=== PATIENT | female | born 1945 | race Caucasian/White ===

== ENCOUNTER 2021-10-22 12:18 | Emergency (ER) | payer MEDICARE, SELFPAY ==
--- NOTE | ~2021-10-22 | CT_ITS ---
EXAMINATION: CT brain wo con INDICATION: Confusion, headache COMPARISON: None TECHNIQUE: Standard unenhanced head CT. The dose-length product (DLP) was 605.33 mGy-cm. The mA was a djusted according to patient size. Iterative reconstruction technique was employed. FINDINGS: There is no acute intraparenchymal hemorrhage. No evidence of mass lesion. There is an old lacunar infarct of the left basal ganglia. No evidence of acute infarction. There is mild periventric ular and subcortical hypodensity probably related to small vessel ischemic disease. There is mild pro minence of the sulci and ventricles related to cerebral atrophy. Intracranial calcified cerebral athe rosclerosis is noted. There are no extra-axial collections. There is no mass effect or midline shift. Changes in the globes are likely from ocular lens surgery. The visualized sinuses and mastoid air ce lls are well aerated. IMPRESSION: 1. No acute intracranial abnormality. 2. Age related findings. Reviewed, dictated and finalized at location A.
--- NOTE | ~2021-10-22 | XR_ITS ---
EXAMINATION: XR chest 1V portable INDICATION: Shortness of breath TECHNIQUE: Portable AP chest at 1510 hours COMPARISON: None available FINDINGS: There is a mild diffuse interstitial pattern. There is elevation right hemidiaphragm. There is mild atelectasis of the right lung base. The heart size is normal. There is a moderate-sized slid ing hiatal hernia. Severe thoracic and lumbar spondylosis is noted. IMPRESSION: 1. Diffuse interstitial pattern, consistent with pneumonia and/or pulmonary edema. Reviewed, dictated and finalized at location A. IMPRESSION: 1. Diffuse interstitial pattern, consistent with pneumonia and/or pulmonary margarita
--- NOTE | ~2021-10-22 | US_ITS ---
EXAMINATION: US venous doppler [facility] DATE: 10/22/2021 14:58 INDICATION: leg pain and edema . TECHNIQUE: Grayscale images without and with compression and Doppler images of the bilateral lower ex tremity veins were obtained. COMPARISON: None FINDINGS: The right common femoral vein, profunda (deep) femoral vein, femoral vein, popliteal vein, peroneal v ein, posterior tibial veins, and greater saphenous vein are patent. The left common femoral vein, profunda femoral vein, femoral vein, popliteal vein, peroneal vein, pos terior tibial veins, and greater saphenous vein are patent. IMPRESSION: 1. Patent bilateral lower extremity veins. No evidence of deep venous thrombosis. Reviewed, dictated and finalized at location K. IMPRESSION: 1. Patent bilateral lower extremity veins. No evidence of deep venous thrombos is.
--- NOTE | ~2021-10-22 | CT_ITS ---
EXAMINATION: CT lumbar spine wo con DATE: 10/22/2021 14:32 INDICATION: back pain, fall . TECHNIQUE: Computed tomography (CT) of the lumbar spine was performed without intravenous contrast. A utomated exposure control and iterative reconstruction technique were employed. The dose-length produ ct was 1144.12 mGy-cm. COMPARISON: None. FINDINGS: 5 nonrib-bearing lumbar-type vertebral bodies. Pedicles intact. Severe lumbar scoliosis. Ve rtebral bodies grossly aligned. Vertebral body heights preserved. Severe disc space narrowing and vac uum phenomenon at all lumbar levels. Multilevel severe facet arthropathy. Multilevel severe bilateral neural foraminal narrowing. Multilevel severe central canal narrowing, worst at L3-4 and L4-5. Ather osclerotic arterial calcification. Diverticulosis. IMPRESSION: 1. No acute fracture or traumatic malalignment in the lumbar spine. 2. Severe degenerative disc disease, facet arthropathy, neural foraminal narrowing and central canal narrowing, described above. Reviewed, dictated and finalized at location K. IMPRESSION: 1. No acute fracture or traumatic malalignment in the lumbar spine. 2. Severe degenerative disc disease, facet arthropathy, neural foraminal narrow ing and central canal narrowing, described above.
[2021-10-22 12:26] VITALS: BP 148/90; PULSE 97; RESP 16; TEMP 36.8; O2SAT 95
--- NOTE | 2021-10-22 13:14 | ED.LOWEXIN ---
HPI - Extremity Injury (Lower) General Chief Complaint: Extremity Injury, Lower Stated Complaint: Leg Pain, Pain Control Time Seen by Provider: 10/22/21 13:14 History of Present Illness HPI Narrative: The patient is a 76-year-old female with a history of dementia bipolar disorder, iron deficiency anemia, acid reflux, hypertension, atrial fibrillation, hypothyroidism, myasthenia gravis, presenting to the emergency department for evaluation of acute on chronic back pain. History is somewhat difficult to obtain to the patient due to her mild dementia but she is a participate in history taking. Daughter is at bedside who also helps to augment the history. Per patient, she states that she fell while trying to use the restroom last night. She has mostly been ambulating with use of a walker or use of a wheelchair, does not do any independent ambulation. Patient did not hit her head. Staff was present and witnessed this. Patient reports worsening left lower back pain and she does have a diagnosis of sciatica for which she is scheduled to see pain management tomorrow. Patient currently is taking Tylenol daily, denies taking any other medication for pain. Per daughter, she states that her mother seems to be more confused today. She denies any fever, nausea, vomiting. No reported complaints of chest or abdominal pain Patient states that at times, the pain is sharp, shooting nature to the left lower back and traveling down the left leg and buttock. Patient reports weakness in that extremity as well as swelling. Denies redness. Related Data Home Medications Medication Instructions Recorded Confirmed acetaminophen 650 mg 2 mg PO BID PRN Pain 10/22/21 10/22/21 tablet,extended release (Arthritis Pain Reliever) amlodipine 5 mg tablet 5 mg PO DAILY 10/22/21 10/22/21 apixaban 5 mg tablet (Eliquis) 5 mg PO BID 10/22/21 10/22/21 carvedilol 12.5 mg tablet 12.5 mg PO BID 10/22/21 10/22/21 diclofenac sodium 100 mg 100 mg PO DAILY 10/22/21 10/22/21 tablet,extended release 24 hr duloxetine 60 mg capsule,delayed 60 mg PO DAILY 10/22/21 10/22/21 release sprinkle ergocalciferol (vitamin D2) 25,000 50,000 unit PO WEEKLY 10/22/21 10/22/21 unit capsule ezetimibe 10 mg tablet 10 mg PO DAILY 10/22/21 10/22/21 ferrous sulfate 325 mg (65 mg 325 mg PO DAILY 10/22/21 10/22/21 iron) tablet (FeroSul) fluvoxamine 50 mg tablet 50 mg PO HS 10/22/21 10/22/21 lamotrigine 200 mg tablet 200 mg PO BID 10/22/21 10/22/21 lisinopril 10 mg tablet 10 mg PO BID 10/22/21 10/22/21 memantine 5 mg tablet 5 mg PO QAM 10/22/21 10/22/21 omeprazole 20 mg tablet,delayed 20 mg PO DAILY 10/22/21 10/22/21 release oxybutynin chloride 5 mg tablet 5 mg PO BID 10/22/21 10/22/21 pravastatin 20 mg tablet 20 mg PO DAILY 10/22/21 10/22/21 ropinirole 3 mg tablet 3 mg PO HS 10/22/21 10/22/21 Allergies Allergy/AdvReac Type Severity Reaction Status Date / Time adhesive tape AdvReac Rash Verified 10/22/21 13:17 Review of Systems Review of Systems: CONSTITUTIONAL: Denies fever, chills, or sweats. EYES: Denies visual changes, redness, or discharge. ENT: Denies rhinorrhea, congestion, sore throat, or otalgia. CARDIOVASCULAR: Denies chest pain, palpitations, or edema. RESPIRATORY: Denies cough or dyspnea. GASTROINTESTINAL: Denies abdominal pain, nausea, vomiting, or diarrhea. GENITOURINARY: Denies dysuria or hematuria. SKIN: Denies rash or itching. MUSCULOSKELETAL: Reports back pain without other joint pain NEUROLOGIC: Denies headache, numbness, reports weakness in the left lower extremity [facility] Surgical History Surgical History (Updated 10/22/21 @ 13:45 by Loretta Levy MD) History of knee replacement Social History Social History (Updated 10/22/21 @ 13:47 by Loretta Levy MD) Smoking status: Never smoker Alcohol intake: never Substance use: never Living arrangements: [facility] Gender identity (if verbalized by the patient): Female Exam [facility]
--- NOTE | 2021-10-22 13:35 | ECG_ITS ---
Measurements Intervals [place] Rate: 96 P: 36 UT: 185 QRS: 33 QRSD: 166 T: 15 QT: 393 QTc: 498 Interpretive Statements SINUS RHYTHM BASELINE ARTIFACT RIGHT BUNDLE BRANCH BLOCK ABNORMAL ECG NO PREVIOUS ECG AVAILABLE FOR COMPARISON Electronically Signed On 10-22-2021 16:45:49 CDT by Gurjit Romero M.D.
[2021-10-22 13:59] LABS: Basophils Absolute Auto 0.1 K/mm3 (0.0-0.1); Basophils Percent Auto 0.6 % (0.2-1.2); Eosinophils Absolute Auto 0.2 K/mm3 (0-0.3); Eosinophils Percent Auto 2.5 % (0-4.4); Hematocrit 32.3 % (37.0-47.0); Hemoglobin 9.8 g/dL (12.0-15.0); Immature Granulocyte Absolute 0.03 K/mm3 (0.00-0.031); Immature Granulocyte Percent A 0.4 % (0-0.5); Lymphocytes Absolute Auto 1.09 K/mm3 (0.9-3.2); Mean Corpuscular HGB Conc 30.3 g/dl (32-36); Mean Corpuscular Hemoglobin 31.1 pg (26-34); Mean Corpuscular Volume 102.5 fl (80-100); Mean Platelet Volume 10.7 fl (7.4-10.4); Monocytes Absolute Auto 0.7 K/mm3 (0.1-0.6); Monocytes Percent Auto 8.2 % (2.6-8.5); Neutrophils Absolute Auto 6.3 K/mm3 (1.3-6.7); Neutrophils Percent Auto 75.3 % (45.5-73.1); Nucleated Red Blood Cells Perc 0.2 % (0.0-0.2); Platelet Count Result 248 k/mm3 (150-375); Red Blood Count 3.15 M/mm3 (4.2-5.4); Red Cell Distribution Width 15.9 % (11.5-14.5); White Blood Count 8.4 K/mm3 (4.5-10.0)
[2021-10-22 14:09] LABS: Alanine Aminotransferase 20 U/L (6-35); Albumin Level 3.8 g/dL (3.5-5.1); Alkaline Phosphatase 88 U/L (38-126); Anion Gap 5 mmol/L (8-16); Aspartate Amino Transferase 27 U/L (14-36); Bilirubin,Total 0.2 mg/dL (0.2-1.3); Blood Urea Nitrogen 17 mg/dL (7-17); Calcium 8.5 mg/dL (8.4-10.2); Carbon Dioxide 30 mmol/L (22-30); Chloride 104 mmol/L (98-107); Estimated CRCL calculation 58 ml/min; Estimated Glomerular Filt Rate > 60; Glucose 96 mg/dL (65-110); Potassium 3.9 mmol/L (3.4-5.0); Sodium 139 mmol/L (137-145)
[2021-10-22] MEDS: oxyCODONE HCL (*CRX) 2.5 MG TAB IR PO (14:15)
[2021-10-22 14:21] LABS: Troponin I < 0.012 ng/mL (0.000-0.034)
--- NOTE | 2021-10-22 14:22 | PC.NURSE ---
Pt to imaging via stretcher
[2021-10-22 14:25] LABS: Appearance Urine Cloudy (Clear); Bilirubin Urine Negative (Negative); Color Urine Yellow (Yellow); Glucose Urine UA Negative (Negative); Ketones Urine Negative (Negative); Leukocyte Esterase Ur 3+ LEU/UL (Negative); Nitrate Urine Positive (Negative); Protein Urine Trace mg/dL (Negative)
[2021-10-22 14:33] LABS: Bacteria Urine Trace /hpf; WBC Urine >75 /hpf
[2021-10-22 14:34] LABS: Add Urine Microscopic? YES; Blood Urine Trace-Intact (Negative)
[2021-10-22 14:42] VITALS: BP 156/98; PULSE 76; RESP 18; O2SAT 97
[2021-10-22 16:09] VITALS: BP 166/66; PULSE 77; RESP 16; O2SAT 98
[2021-10-22] MEDS: KETOROLAC (*BKC) 60 MG/2 ML VIAL 15 MG IM (16:09)
[2021-10-22] MEDS: FUROSEMIDE INJ 40 MG/4 ML VIAL 20 MG IV PUSH (16:23)
--- NOTE | 2021-10-22 16:23 | PC.NURSE ---
Lab called to add BNP on to blood in lab.
[2021-10-22 16:43] VITALS: BP 160/66; PULSE 77; RESP 16; O2SAT 98
== END 2021-10-22 16:44 | disposition home or self-care (01) ==
PROVIDERS: Emergency Provider Emergency Medicine
DX: N39.0 Urinary tract infection, site not specified (principal); M54.42 Lumbago with sciatica, left side; G89.29 Other chronic pain; F03.90 Unspecified dementia, unspecified severity, without behavioral disturbance, psychotic disturbance, mood disturbance, and anxiety; I10 Essential (primary) hypertension; I48.91 Unspecified atrial fibrillation; E03.9 Hypothyroidism, unspecified; D50.9 Iron deficiency anemia, unspecified; G70.00 Myasthenia gravis without (acute) exacerbation; K21.9 Gastro-esophageal reflux disease without esophagitis; F31.9 Bipolar disorder, unspecified; R60.0 Localized edema; Z79.01 Long term (current) use of anticoagulants; Z96.659 Presence of unspecified artificial knee joint; R94.31 Abnormal electrocardiogram [ECG] [EKG]; W18.30XA Fall on same level, unspecified, initial encounter
CPT/HCPCS: 36415; 70450; 71045; 72131; 80053; 81001; 84484; 85025; 87077; 87086; 87186; 93005; 93970; 96365; 96372; 96375; 99284; A9270; J0696; J1100; J1885; J1940

== ENCOUNTER 2021-11-04 04:18 | Emergency (ER) | payer MEDICARE, SELFPAY ==
--- NOTE | ~2021-11-04 | CT_ITS ---
EXAMINATION: CT cervical spine wo con DATE: 11/04/2021 04:53 INDICATION: Status post fall. Neck pain. TECHNIQUE: Computed tomography (CT) of the cervical spine was performed without intravenous contrast. The dose-length product was 503 mGy-cm. Automated exposure control and iterative reconstruction tech nique were employed. COMPARISON: None FINDINGS: There is reversal of cervical lordosis with degenerative anterolisthesis at C2-3 and C3-4 w ith retrolisthesis at C4-5. There is advanced degenerative disc disease at C4-5, C5-6 and C6-7. There is moderate multilevel uncinate and facet degenerative change. Calcified granulomata in the left ape x. Odontoid process is normal. Craniovertebral junction within normal limits. There is carotid athero sclerosis. No significant paraspinal soft tissue abnormality. IMPRESSION: 1. No acute intracranial abnormality. 2: Severe cervical spondylosis. Reviewed, dictated and finalized at location A.
--- NOTE | ~2021-11-04 | CT_ITS ---
EXAMINATION: CT brain wo con DATE: 11/04/2021 04:52 INDICATION: Status post fall. TECHNIQUE: Computed tomography (CT) of the head was performed without intravenous contrast. The dose- length product was 605.33 mGy-cm. Automated exposure control and iterative reconstruction technique w ere employed. COMPARISON: CT dated 12/22/2021 FINDINGS: Mild generalized atrophy. There are scattered moderate periventricular and subcortical white matter changes, most likely relate d to small vessel ischemic disease (microangiopathy). No acute intracranial hemorrhage, infarction, m ass or mass effect. No ventriculomegaly or midline shift. Paranasal sinuses and mastoids are pneumati zed. No depressed skull fractures. Basilar cisterns are patent. IMPRESSION: 1. No acute intracranial abnormality. 2: Chronic age-related findings. Reviewed, dictated and finalized at location A.
[2021-11-04 04:20] VITALS: BP 143/73; PULSE 96; RESP 16; O2SAT 95
[2021-11-04 04:27] VITALS: BP 149/73; PULSE 96; RESP 16; O2SAT 95
--- NOTE | 2021-11-04 04:30 | ED.GENADULT ---
HPI - General Adult General Chief complaint: Fall Stated complaint: FELL, HIT HEAD History of Present Illness HPI narrative: 76-year-old female presenting the emergency department for evaluation after having a fall from her couch. Patient states she rolled from the couch and did strike her head on a wheelchair that was just next to the couch. Patient does have a small hematoma to her scalp. Patient denies any other pain or injury. Patient states she does have a chronic pains including back and legs but denies any worsening of these chronic pains since rolling from the couch. Related Data Home Medications Medication Instructions Recorded Confirmed acetaminophen 650 mg 2 mg PO BID PRN Pain 10/22/21 10/22/21 tablet,extended release (Arthritis Pain Reliever) amlodipine 5 mg tablet 5 mg PO DAILY 10/22/21 10/22/21 apixaban 5 mg tablet (Eliquis) 5 mg PO BID 10/22/21 10/22/21 carvedilol 12.5 mg tablet 12.5 mg PO BID 10/22/21 10/22/21 diclofenac sodium 100 mg 100 mg PO DAILY 10/22/21 10/22/21 tablet,extended release 24 hr duloxetine 60 mg capsule,delayed 60 mg PO DAILY 10/22/21 10/22/21 release sprinkle ergocalciferol (vitamin D2) 25,000 50,000 unit PO WEEKLY 10/22/21 10/22/21 unit capsule ezetimibe 10 mg tablet 10 mg PO DAILY 10/22/21 10/22/21 ferrous sulfate 325 mg (65 mg 325 mg PO DAILY 10/22/21 10/22/21 iron) tablet (FeroSul) fluvoxamine 50 mg tablet 50 mg PO HS 10/22/21 10/22/21 lamotrigine 200 mg tablet 200 mg PO BID 10/22/21 10/22/21 lisinopril 10 mg tablet 10 mg PO BID 10/22/21 10/22/21 memantine 5 mg tablet 5 mg PO QAM 10/22/21 10/22/21 omeprazole 20 mg tablet,delayed 20 mg PO DAILY 10/22/21 10/22/21 release oxybutynin chloride 5 mg tablet 5 mg PO BID 10/22/21 10/22/21 pravastatin 20 mg tablet 20 mg PO DAILY 10/22/21 10/22/21 ropinirole 3 mg tablet 3 mg PO HS 10/22/21 10/22/21 Allergies Allergy/AdvReac Type Severity Reaction Status Date / Time adhesive tape AdvReac Rash Verified 11/04/21 04:28 Review of Systems Review of Systems: CONSTITUTIONAL: Denies fever, chills, or sweats. EYES: Denies visual changes, redness, or discharge. ENT: Denies rhinorrhea, congestion, sore throat, or otalgia. CARDIOVASCULAR: Denies chest pain, palpitations, or edema. RESPIRATORY: Denies cough or dyspnea. GASTROINTESTINAL: Denies abdominal pain, nausea, vomiting, or diarrhea. GENITOURINARY: Denies dysuria or hematuria. SKIN: Denies rash or itching. MUSCULOSKELETAL: Head injury, see HPI NEUROLOGIC: Denies headache, numbness, or weakness. [facility] Surgical History Surgical History (Updated 10/22/21 @ 13:45 by Loretta Levy MD) History of knee replacement Social History Social History (Updated 10/22/21 @ 13:47 by Loretta Levy MD) Smoking status: Never smoker Alcohol intake: never Substance use: never Gender identity (if verbalized by the patient): Female Exam Narrative: APPEARANCE: Well appearing, no pain, no distress, well-nourished. HEAD: normocephalic, small hematoma to posterior right scalp EYES: PERRLA/EOMI, conjunctivae clear. NOSE: Normal no drainage THROAT: Pharynx clear, no exudate. NECK: Supple. No adenopathy, no masses. RESPIRATORY: Airway patent, respirations nonlabored. Clear to auscultation bilaterally, no rales, rhonchi, wheezing. CARDIOVASCULAR: Regular rate and rhythm without murmurs rubs or gallops. ABDOMINAL: Soft, nontender, nondistended, normal bowel sounds MUSCULOSKELETAL: Moves all extremities. Strength/ROM intact, No edema, No calf tenderness. NEURO: Alert. Cranial nerves II through XII intact. Grossly intact SKIN: Warm, dry. Normal Color Course Course Emergency Course: Patient is up on the results of her imaging. Patient denies complaints at this time. Patient was discharged back to her care facility. Vital Signs Vital signs: Vital Signs Pulse Rate 96 11/04/21 04:20 Respiratory Rate 16 11/04/21 04:20 Blood Pressure 143/73 H 11/04/21 04:20 Pulse Ox
--- NOTE | 2021-11-04 06:25 | PC.NURSE ---
called [facility] to request transport. ETA [id number] called [facility] to request transport. They declined
[2021-11-04 06:31] VITALS: BP 144/80; PULSE 95; RESP 16; O2SAT 97
[2021-11-04 06:34] VITALS: BP 144/80; PULSE 95; RESP 16; O2SAT 97
--- NOTE | 2021-11-04 06:34 | PC.NURSE ---
Pt waiting on transport via EMS at this time.
--- NOTE | 2021-11-04 08:22 | PC.NURSE ---
Patient's daughter, Naima, called for ride home. States she will be here in about 30 minutes.
--- NOTE | 2021-11-04 08:28 | PC.NURSE ---
[facility] cancelled - family coming for return transport
[2021-11-04 11:00] VITALS: BP 132/78; PULSE 78; RESP 14; O2SAT 96
== END 2021-11-04 11:24 ==
PROVIDERS: Emergency Provider Emergency Medicine
DX: S00.03XA Contusion of scalp, initial encounter (principal); Z79.01 Long term (current) use of anticoagulants; Z96.659 Presence of unspecified artificial knee joint; W08.XXXA Fall from other furniture, initial encounter
CPT/HCPCS: 70450; 72125; 99284

== ENCOUNTER 2022-01-17 13:43 | Emergency (ER) | payer MEDICARE, SELFPAY ==
[2022-01-17 13:52] VITALS: BP 175/69; PULSE 95; RESP 16; TEMP 36.1; O2SAT 95
--- NOTE | 2022-01-17 16:13 | ECG_ITS ---
Measurements Intervals [place] Rate: 94 P: 38 PA: 204 QRS: 24 QRSD: 165 T: 5 QT: 403 QTc: 506 Interpretive Statements SINUS RHYTHM RIGHT BUNDLE BRANCH BLOCK ANTEROSEPTAL INFARCT, AGE INDETERMINATE BASELINE ARTIFACT- I, II, AVR, AVL, AVF, V5-V6 ABNORMAL ECG COMPARED TO ECG 10/22/2021 14:21:06 ANTEROSEPTAL INFARCT, AGE INDETERMINATE NOW PRESENT Electronically Signed On 01-17-2022 17:51:43 CDT by Octavio Barker D.O.
--- NOTE | 2022-01-17 17:05 | ED.GENADULT ---
HPI - General Adult General Chief complaint: Extremity Problem,Nontraumatic Stated complaint: left foot pain Time Seen by Provider: 01/17/22 15:41 History of Present Illness HPI narrative: This is a 76-year-old female presenting to ED with a chief complaint of left foot pain. Patient has chronic left lower extremity edema. Over the last 2 days she has noticed some increased pain and some redness. She wears compression stockings at all times and after she removed those the redness has since gone away. The patient was sent by her skilled nursing for concern for DVT. However the patient is already taking Eliquis twice daily. She has been seen by vascular for a DVT in that leg previously and they told her to continue her current medication regiment ascites the appropriate treatment. Patient denies any other physical complaints at this time. Related Data Home Medications Medication Instructions Recorded Confirmed acetaminophen 650 mg 2 mg PO BID PRN Pain 10/22/21 10/22/21 tablet,extended release (Arthritis Pain Reliever) amlodipine 5 mg tablet 5 mg PO DAILY 10/22/21 10/22/21 apixaban 5 mg tablet (Eliquis) 5 mg PO BID 10/22/21 10/22/21 carvedilol 12.5 mg tablet 12.5 mg PO BID 10/22/21 10/22/21 diclofenac sodium 100 mg 100 mg PO DAILY 10/22/21 10/22/21 tablet,extended release 24 hr duloxetine 60 mg capsule,delayed 60 mg PO DAILY 10/22/21 10/22/21 release sprinkle ergocalciferol (vitamin D2) 25,000 50,000 unit PO WEEKLY 10/22/21 10/22/21 unit capsule ezetimibe 10 mg tablet 10 mg PO DAILY 10/22/21 10/22/21 ferrous sulfate 325 mg (65 mg 325 mg PO DAILY 10/22/21 10/22/21 iron) tablet (FeroSul) fluvoxamine 50 mg tablet 50 mg PO HS 10/22/21 10/22/21 lamotrigine 200 mg tablet 200 mg PO BID 10/22/21 10/22/21 lisinopril 10 mg tablet 10 mg PO BID 10/22/21 10/22/21 memantine 5 mg tablet 5 mg PO QAM 10/22/21 10/22/21 omeprazole 20 mg tablet,delayed 20 mg PO DAILY 10/22/21 10/22/21 release oxybutynin chloride 5 mg tablet 5 mg PO BID 10/22/21 10/22/21 pravastatin 20 mg tablet 20 mg PO DAILY 10/22/21 10/22/21 ropinirole 3 mg tablet 3 mg PO HS 10/22/21 10/22/21 Allergies Allergy/AdvReac Type Severity Reaction Status Date / Time adhesive tape AdvReac Rash Verified 11/04/21 04:28 Review of Systems Review of Systems: CONSTITUTIONAL: Denies night sweats. EYES: No eye pain ENT: Denies rhinorrhea CARDIOVASCULAR: Denies palpitations RESPIRATORY: Denies hemoptysis GASTROINTESTINAL: Denies hematemesis GENITOURINARY: Denies hematuria. SKIN: Denies rash MUSCULOSKELETAL: Denies myalgia. NEUROLOGIC: Denies weakness. PSYCHIATRIC: Denies delusions [facility] Surgical History Surgical History (Updated 10/22/21 @ 13:45 by Loretta Levy MD) History of knee replacement Social History Social History (Updated 10/22/21 @ 13:47 by Loretta Levy MD) Smoking status: Never smoker Alcohol intake: never Substance use: never Gender identity (if verbalized by the patient): Female Exam Narrative: APPEARANCE: No apparent distress. Patient is very pleasant during the interview. Her daughter is at bedside. Head atraumatic. EYES: PERRLA/EOMI, NOSE: Normal no drainage NECK: Supple, Trachea midline RESPIRATORY: CTAB, No increased work of breathing. CARDIOVASCULAR: S1S2 appreciated, +2 edema of the LLE ABDOMINAL: Soft, nontender, nondistended, MUSCULOSKELETAl: No obvious deformities, Focal exam of the left lower extremity revealed +2 pitting edema up to the mid stephens. There are multiple surgical scars in the ankle from a previous ankle replacement surgery. There is no overlying skin changes. No erythema or areas of fluctuance. Patient is able to move her toes. She has sensation light touch is intact. Pulses are +2 in the PD and posterior tibial distribution. NEURO: Alert. Moving 4/4 extremities SKIN:: Warm, dry. Normal color PSYCHIATRIC: Normal affect Course Vital Signs Vital signs: Vital Signs Temperature
[2022-01-17 17:37] VITALS: BP 152/88; PULSE 80; RESP 18; TEMP 36.6; O2SAT 97
== END 2022-01-17 17:39 ==
PROVIDERS: Emergency Provider Emergency Medicine
DX: R60.0 Localized edema (principal); M25.572 Pain in left ankle and joints of left foot; Z79.01 Long term (current) use of anticoagulants
CPT/HCPCS: 93005; 99283

== ENCOUNTER 2022-02-02 16:39 | Inpatient (IN) | payer MEDICARE, SELFPAY ==
[2022-02-02] VITALS (29 sets, daily range): BP systolic 108–164; BP diastolic 53–121; PULSE 81–134; RESP 15–32; TEMP 36.4; O2SAT 92–100
--- NOTE | ~2022-02-02 | XR_ITS ---
EXAMINATION: XR chest 1V portable Exam Date/Time: 02/02/2022 17:15 CDT HISTORY: SOA Comparison: 10/22/2021. RESULT: Lines, tubes, and devices: None. Lungs and pleura: Low volumes with crowding. Streaky and subsegmental mid left and bilateral lower l lety opacities. Minimal right and mild left lateral angle blunting. Indistinct vessels. Cardiomediastinal silhouette: Stable. Other: No acute osseous or upper abdominal finding. IMPRESSION: Pulmonary opacities likely represent pulmonary edema with bibasilar atelectasis and small bilateral e ffusions. Infection is not excluded. Reviewed, dictated and finalized at location K. IMPRESSION: Pulmonary opacities likely represent pulmonary edema with bibasilar atelectasis and small bilateral effusions. Infection is not excluded.
--- NOTE | ~2022-02-02 | CT_ITS ---
EXAMINATION: CTA chest PE protocol DATE: 02/02/2022 19:35 INDICATION: pulmonary embolism TECHNIQUE: Computed tomography angiography (CTA) of the chest was performed with 100 mL Omnipaque-350 intravenous contrast timed to evaluate the pulmonary arteries. Coronal maximum intensity projection 3D-reconstructions were created by the technologist. The dose-length product (DLP) was 617.59 mGy-cm. Automated exposure control and iterative reconstruction technique were employed. COMPARISON: X-ray chest, same date. FINDINGS: Lung parenchyma and airways: Calcified granulomas. Bibasilar scar and atelectasis. Interlobular septa l thickening. Pleura: Scattered trace bilateral pleural fluid collections, slightly greater on the left scattered a reas of pleural thickening.. Thoracic inlet, axillae and chest wall: Unremarkable. Thoracic aorta: No aneurysm. Moderate atherosclerotic calcifications. Mediastinum: Large hiatal hernia. Heart and pericardium: Normal. Coronary artery calcifications: Mild. Upper abdomen: Bilateral adrenal thickening, likely hyperplasia. Bones: No acute osseous finding. Pulmonary arteries: Study quality: Adequate. No pulmonary emboli detected. IMPRESSION: No CT evidence of acute pulmonary embolus. Mild interstitial edema and bibasilar atelectasis, with se nescent changes. Small left and trace right pleural effusions. Reviewed, dictated and finalized at location K. IMPRESSION: No CT evidence of acute pulmonary embolus. Mild interstitial edema and bibasila r atelectasis, with senescent changes. Small left and trace right pleural effus ions.
--- NOTE | 2022-02-02 17:00 | ECG_ITS ---
Measurements Intervals [place] Rate: 112 P: VT: 0 QRS: 67 QRSD: 162 T: 12 QT: 338 QTc: 462 Interpretive Statements ATRIAL FIBRILLATION WITH RAPID VENTRICULAR RESPONSE RIGHT BUNDLE BRANCH BLOCK [120+ ms QRS DURATION, UPRIGHT V1, 40+ ms S IN I/aVL/V4/V5/V6] ANTEROSEPTAL INFARCT, AGE INDETERMINATE COMPARED TO ECG 01/17/2022 16:18:16 ATRIAL FIBRILLATION NOW PRESENT Electronically Signed On 02-03-2022 17:14:56 CDT by Rolanda Florez M.D.
[2022-02-02] MEDS: dilTIAZem HCl INJ 25 MG/5 ML VIAL 10 MG IV PUSH (17:26)
[2022-02-02 17:33] LABS: Basophils Absolute Auto 0.1 K/mm3 (0.0-0.1); Basophils Percent Auto 0.4 % (0.2-1.2); Eosinophils Absolute Auto 0.1 K/mm3 (0-0.3); Eosinophils Percent Auto 0.8 % (0-4.4); Hematocrit 29.6 % (37.0-47.0); Hemoglobin 9.4 g/dL (12.0-15.0); Immature Granulocyte Absolute 0.12 K/mm3 (0.00-0.031); Immature Granulocyte Percent A 0.7 % (0-0.5); Lymphocytes Absolute Auto 0.72 K/mm3 (0.9-3.2); Lymphocytes Percent Auto 4.4 % (18.3-44.2); Mean Corpuscular HGB Conc 31.8 g/dl (32-36); Mean Corpuscular Volume 100.7 fl (80-100); Mean Platelet Volume 10.7 fl (7.4-10.4); Monocytes Absolute Auto 1.5 K/mm3 (0.1-0.6); Monocytes Percent Auto 9.4 % (2.6-8.5); Neutrophils Absolute Auto 13.8 K/mm3 (1.3-6.7); Neutrophils Percent Auto 84.3 % (45.5-73.1); Platelet Count Result 284 k/mm3 (150-375); Red Blood Count 2.94 M/mm3 (4.2-5.4); Red Cell Distribution Width 13.4 % (11.5-14.5); White Blood Count 16.4 K/mm3 (4.5-10.0)
[2022-02-02 17:48] LABS: Alanine Aminotransferase 24 U/L (6-35); Albumin Level 3.7 g/dL (3.5-5.1); Alkaline Phosphatase 87 U/L (38-126); Anion Gap 11 mmol/L (8-16); Aspartate Amino Transferase 26 U/L (14-36); Bilirubin,Total 0.5 mg/dL (0.2-1.3); Blood Urea Nitrogen 12 mg/dL (7-17); Calcium 8.8 mg/dL (8.4-10.2); Carbon Dioxide 32 mmol/L (22-30); Chloride 98 mmol/L (98-107); Estimated CRCL calculation 73 ml/min; Estimated Glomerular Filt Rate > 60; Glucose 143 mg/dL (65-110); Potassium 3.6 mmol/L (3.4-5.0); Sodium 141 mmol/L (137-145)
[2022-02-02 17:56] LABS: INR 1.4; Prothrombin Time 16.6 Seconds (11.1-14.7)
[2022-02-02 17:57] LABS: Partial Thromboplastin Time 33.7 SECONDS (22.3-36.8)
[2022-02-02 17:59] LABS: NT Pro B Type Natriuretic Pept 3740 pg/mL (5-100)
--- NOTE | 2022-02-02 18:24 | ED.GENADULT ---
HPI - General Adult General Chief complaint: Shortness of Breath/Dyspnea <Pablo Kaur MD - Last Filed: 02/03/22 19:11> Stated complaint: SOB <Pablo Kaur MD - Last Filed: 02/03/22 19:11> Time Seen by Provider: 02/02/22 16:55 <Pablo Kaur MD - Last Filed: 02/03/22 19:11> History of Present Illness HPI narrative: Patient is a 76-year-old female who presents ER with confusion and shortness of breath. Patient recently underwent spine surgery at [facility] on 01/27/[address] Perdue. She does have history of spinal stenosis. After the surgery she had to lie flat for 48 hours due to a dural tear related to adherent dura to bone. She has been off of her anticoagulation up until yesterday. Patient has been getting straight urinary catheterized since her discharge from the hospital and while she was in the hospital due to her lying flat, according to daughter patient has been having about 600 mL of retained urine each time. She is currently rehabbing at [facility]. Patient is not typically oxygen dependent but was found to be hypoxic and placed on nonrebreather by EMS on 15 L. Currently requiring 4 L. Patient is in A. fib with RVR. She is having no chest pain or chest pressure. She is alert and oriented x3 but has poor understanding what is occurring at this time. Patient does have malodorous urine noted at the bedside. Daughter reports she is having delirium/confusion while at the hospital and was concerned about her being discharged but the discharge went through anyway. <Pablo Kaur MD - Last Filed: 02/03/22 19:11> Related Data Home medications: Home Medications Medication Instructions Recorded Confirmed apixaban 5 mg tablet (Eliquis) 5 mg PO BID 10/22/21 02/03/22 carvedilol 12.5 mg tablet 25 mg PO BID 10/22/21 02/03/22 duloxetine 60 mg capsule,delayed 60 mg PO DAILY 10/22/21 02/03/22 release sprinkle ezetimibe 10 mg tablet 10 mg PO DAILY 10/22/21 02/03/22 ferrous sulfate 325 mg (65 mg 325 mg PO DAILY 10/22/21 02/03/22 iron) tablet (FeroSul) lamotrigine 200 mg tablet 200 mg PO BID 10/22/21 02/03/22 lisinopril 10 mg tablet 10 mg PO BID 10/22/21 02/03/22 memantine 5 mg tablet 5 mg PO QAM 10/22/21 02/03/22 omeprazole 20 mg tablet,delayed 20 mg PO DAILY 10/22/21 02/03/22 release oxybutynin chloride 5 mg tablet 5 mg PO BID 10/22/21 02/03/22 pravastatin 20 mg tablet 20 mg PO DAILY 10/22/21 02/03/22 ropinirole 3 mg tablet 3 mg PO HS 10/22/21 02/03/22 acetaminophen 650 mg 650 mg PO Q8H PRN Pain (Scale 02/03/22 02/03/22 tablet,extended release Score 1-3) aripiprazole 5 mg tablet 5 mg PO DAILY 02/03/22 02/03/22 cholecalciferol (vitamin D3) 125 125 mcg PO WEEKLY 02/03/22 02/03/22 mcg (5,000 unit) tablet diltiazem HCl 240 mg capsule,24 240 mg PO DAILY 02/03/22 02/03/22 hr,extended release fluvoxamine 50 mg tablet mg 02/03/22 furosemide 20 mg tablet 20 mg PO DAILY 02/03/22 02/03/22 ibuprofen 400 mg tablet 800 mg PO TID PRN fever or pain 02/03/22 02/03/22 meloxicam 15 mg tablet 15 mg PO DAILY 02/03/22 02/03/22 quetiapine 25 mg tablet (Seroquel) 12.5 mg PO BID 02/03/22 02/03/22 tramadol 50 mg tablet 50 mg PO Q6H PRN Pain (Scale Score 02/03/22 02/03/22 7-10) <Pablo Kaur MD - Last Filed: 02/03/22 19:11> Allergies/adverse reactions: Allergies Allergy/AdvReac Type Severity Reaction Status Date / Time adhesive tape AdvReac Rash Verified 11/04/21 04:28 <Pablo Kaur MD - Last Filed: 02/03/22 19:11> Review of Systems Review of Systems: ROS unobtainable: Yes unobtainable due to mental status <Pablo Kaur MD - Last Filed: 02/03/22 19:11> [facility] Past Medical History Medical History: Medical History (Updated 02/03/22 @ 16:06 by Gurjit Romero MD) Anemia Atrial fibrillation/flutter Bipolar disorder CHF (congestive heart failure) Dementia Gastritis Hyperlipidemia Hypertension Obstructive sleep apnea treated with
[2022-02-02 19:04] LABS: Bacteria Urine Trace /hpf; Mucus Urine Rare /lpf; Squamous Epithelial Cell Urine Rare /hpf (Few); WBC Urine >75 /hpf
[2022-02-02 19:20] LABS: Appearance Urine Cloudy (Clear); Bilirubin Urine Negative (Negative); Blood Urine Trace-lysed (Negative); Glucose Urine UA Negative (Negative); Ketones Urine Negative (Negative); Leukocyte Esterase Ur 1+ LEU/UL (Negative); Nitrate Urine Negative (Negative); Protein Urine 1+ mg/dL (Negative); Specific Grav Ur 1.025 (1.001-1.035)
[2022-02-02 19:26] LABS: Add Urine Microscopic? YES; Color Urine Dark Yellow (Yellow)
[2022-02-02] MEDS: dilTIAZem 100 MG/100 ML 100 MG/100 ML BAG IV CONT (19:57)
[2022-02-02] MEDS: FUROSEMIDE INJ 40 MG/4 ML VIAL IV PUSH (19:57)
--- NOTE | 2022-02-02 20:03 | PC.NURSE ---
[id number] Assumed pt care from OMAR Borrero
--- NOTE | 2022-02-02 23:00 | PC.NURSE ---
[id number] Pt daughter came up to nurse's station to ask if pt could have her at home medications. Dr. Monae verbally approved night time medications. Pt was given Pravastatin 20 mg, Fluvoxamine 50 mg, Ropinirole 3 mg, Carvedilol 12.5 mg, Eliqius 5 mg, Lamotrigine 200 mg, Lisinopril 10 mg, Oxybutynin 5 mg.
[2022-02-03] VITALS (25 sets, daily range): BP systolic 96–146; BP diastolic 46–83; PULSE 71–118; RESP 18–28; TEMP 36.4–37.3; O2SAT 90–98; BMI 41.8
[2022-02-03 00:07] LABS: SARS-CoV-2 RNA PCR Negative
--- NOTE | 2022-02-03 00:35 | PC.NURSE ---
This patient, Mela Castañeda, was admitted to IMU Room 232-01 on 02/03/2022 at 0030. Patient/family oriented to hospital policies and general routines including ID bracelet, bed and alarms, visiting hours, pain management, procedures, bathroom and other care routines, personal items, smoking policy, room service/diet, and visiting hours. Information on how to activate the Rapid Response Team has been discussed. Patient/Family are encouraged to report perceived risks to care and to ask questions if they do not understand what they are told or what they should do.
[2022-02-03 01:10] LABS: Alveolar/Arterial O2 Gradient 123.8 mmHg; Base Excess ABG 9.6 mEq/l (+/-2.0); Fractional Inspired Oxygen 36 %; HCO3 ABG 35.3 mEq/l (22.0-26.0); Oxygen Content ABG 12.5 %vol (16.0-22.0); Oxygen Saturation ABG 93.9 % (95.0-100.0); PCO2 ABG 54.8 mmHg (35.0-45.0); PO2 ABG 69.3 mmHg (80.0-100.0); PO2 FiO2 Ratio Arterial Blood 1.93 %; Total Hemoglobin 9.6 g/dL (12.0-18.0); pH ABG 7.427 (7.350-7.450)
[2022-02-03 01:12] LABS: Site Drawn LEFT RADIAL
[2022-02-03 01:13] LABS: Device NASAL CANNULA; Modified Allen's Test Pass
--- NOTE | 2022-02-03 03:44 | PM.IMHP ---
H&P: HPI History of Present Illness Date/Time: 02/03/22 01:30 Chief Complaint: Confusion and difficulty breathing Narrative: 76-year-old female with a past medical history of CHF, atrial fibrillation, dementia, bipolar disorder, recent back surgery for spinal stenosis who presented to the ER with difficulty breathing and confusion. The patient was at [facility] for rehab following her surgical procedure at [facility] on 01/27/[address] Perdue. 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 She had to lay flat for 48 hours post surgery. Her anticoagulation had been on hold until 02/01/2022. Ever since her surgical procedure she has been having urinary retention is had intermittent straight catheterization of approximately 600 mL of urine each time. Unfortunately the patient was receiving [facility]ynin at the [facility]. In to find the patient having pursed lip breathing and had hypoxia with sats down in the 80s on room air. EMS brought the patient in on 15 L non-rebreather. The patient was weaned down to 4 L nasal cannula in the ER. When patient arrived to the ER she was found to be in AFib RVR. She had not yet received her evening medications. Patient was reportedly alert and oriented x3 in the ER but had poor understanding of her recent health events and current events during her hospitalization. At the time of my evaluation the patient was alert oriented to person month in the name of the current president. She is confused as to the year and did not realize that she had arrived at the hospital. In the ER the patient was noted to have malodorous urine. Patient's family had reported the patient was agitated and restless as well as confused. They were concerned about the patient being discharged to the [facility] facility but she was discharged despite their reservations. The patient has been afebrile since admission but does have leukocytosis and UA was consistent with likely UTI. The patient had 2.5 L of urinary output in the ER at least 1.5 L of which was retained urine prior to diuretic use. Review of Systems Review of Systems: Limited due to the patient's history of dementia and confusion. [facility] Past Medical History Medical History (Updated 02/03/22 @ 04:41 by Kiesha Shields DO) Anemia Atrial fibrillation/flutter Bipolar disorder CHF (congestive heart failure) Dementia Gastritis Hyperlipidemia Hypertension Obstructive sleep apnea treated with BiPAP Restless legs syndrome (RLS) Urge urinary incontinence Surgical History Surgical History (Updated 02/03/22 @ 04:41 by Kiesha Shields DO) History of back surgery Decompression of lumbar spinal stenosis 01/27/2022 History of knee replacement Status post cataract extraction of both eyes with insertion of intraocular lens Family History Family History Other Unknown family medical history Social History Social History Smoking status: Never smoker Alcohol intake: never Substance use: never Substance use type: does not use Gender identity (if verbalized by the patient): Female Spiritual care concerns: No Meds Home Medications and Allergies Home Medications Medication Instructions Recorded Confirmed Type apixaban 5 mg tablet (Eliquis) 5 mg PO BID 10/22/21 02/03/22 History carvedilol 12.5 mg tablet 25 mg PO BID 10/22/21 02/03/22 History duloxetine 60 mg capsule,delayed 60 mg PO DAILY 10/22/21 02/03/22 History release sprinkle ezetimibe 10 mg tablet 10 mg PO DAILY 10/22/21 02/03/22 History ferrous sulfate 325 mg (65 mg 325 mg PO DAILY 10/22/21 02/03/22 History iron) tablet (FeroSul) lamotrigine 200 mg tablet 200 mg PO BID 10/22/21 02/03/22 History lisinopril 10 mg tablet 10 mg PO BID 10/22/21 02/03/22 History memantine 5 mg table
[2022-02-03] MEDS: dilTIAZem 100 MG/100 ML 100 MG/100 ML BAG 15 MG IV CONT ×2 (03:46→09:48)
[2022-02-03 04:43] LABS: Hematocrit 27.4 % (37.0-47.0); Hemoglobin 8.5 g/dL (12.0-15.0); Mean Corpuscular Hemoglobin 30.9 pg (26-34); Mean Corpuscular Volume 99.6 fl (80-100); Mean Platelet Volume 10.5 fl (7.4-10.4); Platelet Count Result 290 k/mm3 (150-375); Red Blood Count 2.75 M/mm3 (4.2-5.4); Red Cell Distribution Width 13.4 % (11.5-14.5); White Blood Count 12.3 K/mm3 (4.5-10.0)
[2022-02-03 04:58] LABS: Anion Gap 6 mmol/L (8-16); Blood Urea Nitrogen 12 mg/dL (7-17); Calcium 8.6 mg/dL (8.4-10.2); Carbon Dioxide 35 mmol/L (22-30); Chloride 95 mmol/L (98-107); Estimated CRCL calculation 70 ml/min; Estimated Glomerular Filt Rate > 60; Glucose 108 mg/dL (65-110); Magnesium 1.9 mg/dL (1.6-2.3); Potassium 3.4 mmol/L (3.4-5.0); Sodium 136 mmol/L (137-145)
[2022-02-03] MEDS: lamoTRIgine 100 MG TABLET 200 MG PO ×2 (09:36→21:28)
[2022-02-03] MEDS: DULoxetine HCL 60 MG CAPSULE.DR PO (09:36)
[2022-02-03] MEDS: ARIPiprazole 5 MG TABLET PO (09:37)
[2022-02-03] MEDS: APIXABAN 5 MG TABLET PO ×2 (09:37→21:27)
[2022-02-03] MEDS: EZETIMIBE 10 MG TABLET PO (09:38)
[2022-02-03] MEDS: carvediloL 12.5 MG TABLET 25 MG PO ×2 (09:38→21:27)
[2022-02-03] MEDS: FUROSEMIDE INJ 40 MG/4 ML VIAL IV PUSH ×2 (09:38→17:20)
[2022-02-03] MEDS: FERROUS SULFATE 324 MG TABLET PO (09:38)
[2022-02-03] MEDS: PANTOPRAZOLE 40 MG TABLET PO (09:39)
[2022-02-03] MEDS: PRAVASTATIN SODIUM 20 MG TABLET PO (09:39)
[2022-02-03] MEDS: QUEtiapine FUMARATE 12.5 MG TABLET PO ×2 (09:39→21:27)
[2022-02-03] MEDS: lisinopriL 10 MG TABLET PO ×2 (09:39→17:20)
[2022-02-03] MEDS: MEMANTINE 5 MG TABLET PO (09:39)
[2022-02-03] MEDS: POTASSIUM CHLORIDE 20 MEQ TABLET 40 MEQ PO (11:40)
--- NOTE | 2022-02-03 14:04 | ECG_ITS ---
Measurements Intervals [place] Rate: 77 P: 15 PA: 190 QRS: 18 QRSD: 172 T: 4 QT: 410 QTc: 464 Interpretive Statements SINUS RHYTHM RIGHT BUNDLE BRANCH BLOCK NONSPECIFIC ST AND T-WAVE ABNORMALITY BASELINE ARTIFACT COMPARED TO ECG 02/02/2022 16:48:52 SINUS RHYTHM HAS REPLACED ATRIAL FIBRILLATION Electronically Signed On 02-03-2022 17:13:40 CDT by Gurjit Romero M.D.
--- NOTE | 2022-02-03 15:34 | PM.CNCAR ---
Assessment and Plan Assessment and plan (1) Atrial fibrillation with rapid ventricular response: Code(s): I48.91 - Unspecified atrial fibrillation Status: Acute Assessment and Plan: Patient presented with AFib with RVR and evidence of decompensated heart failure improved with O2 supplementation common noninvasive positive pressure ventilation, and intravenous diuretic. Monitor renal function electrolytes. Continue IV Lasix. Wean O2 as tolerated. Check 2D echo. Check troponin. Check TSH. Acute illness with UTI meeting sepsis criteria likely contributing fracture for development of AFib with reported history of paroxysmal AFib on carvedilol 25 mg twice daily and diltiazem 240 mg daily in addition Eliquis 5 mg b.i.d. as an outpatient. Obtain prior cardiovascular records for confirmation. Discontinue diltiazem infusion. Continue anticoagulation as tolerated. Patient is on a fairly aggressive AV clement blocking agent regimen. We may transition carvedilol to metoprolol particular if any recurrence of AFib. (2) CHF exacerbation: Qualifiers: Heart failure type: diastolic Qualified Code(s): I50.33 - Acute on chronic diastolic (congestive) heart failure Code(s): I50.9 - Heart failure, unspecified Status: Acute Assessment and Plan: Probable acute decompensated heart failure with preserved ejection fraction likely diastolic exacerbated by AFib with RVR. Patient also found to be septic on presentation Obtain 2D echocardiogram to assess LV systolic/diastolic function, valve pathology, pulmonary pressures in chamber size. Patient continues to be rather hypoxic requiring significant O2 supplementation greater than would be expected simply due to decompensated heart failure related AFib with RVR. Therefore, additional contributions likely and while patient would be a high risk for pulmonary embolism given recent surgery, admission and immobilization this was excluded by CT angiogram at presentation. (3) Acute respiratory failure with hypoxia: Code(s): J96.01 - Acute respiratory failure with hypoxia Status: Acute Assessment and Plan: Per primary service. Repeat chest x-ray. Continue IV diuresis. O2 supplementation as tolerated. IV antibiotics. (4) Obstructive sleep apnea treated with BiPAP: Code(s): G47.33 - Obstructive sleep apnea (adult) (pediatric) Status: Acute Assessment and Plan: Continue noninvasive positive pressure ventilation. (5) Sepsis: Qualifiers: Sepsis type: sepsis due to unspecified organism Sepsis acute organ dysfunction status: with acute organ dysfunction Severe sepsis acute organ dysfunction type: encephalopathy Severe sepsis shock status: without septic shock Qualified Code(s): A41.9 - Sepsis, unspecified organism; R65.20 - Severe sepsis without septic shock; G93.40 - Encephalopathy, unspecified Code(s): A41.9 - Sepsis, unspecified organism Status: Acute Assessment and Plan: Per primary service. Remains on IV antibiotics. Afebrile, mild leukocytosis improving. (6) Acute UTI: Code(s): N39.0 - Urinary tract infection, site not specified Status: Acute Assessment and Plan: IV antibiotics. (7) Anemia: Code(s): D64.9 - Anemia, unspecified Status: Acute Assessment and Plan: Stable. Monitor H&H. Monitor for bleeding. History of Present Illness History of Present Illness Consult date/time: Date of service: 02/03/22 15:34 Cardiology consultation at the request of Dr. Shields for opinion regarding atrial fibrillation Requesting physician: Kiesha Shields, Consult reason: atrial fibrillation Reason For Visit: CHF exacerbation,hypoxia,UTI, AMS Narrative: Patient is a 76-year-old female with a past medical history for reported CHF, paroxysmal atrial fibrillation, history of dementia, bipolar disorder 100 recent surgery for spinal stenosis at the [facility] [place]
--- NOTE | 2022-02-03 16:31 | PM.IMPN ---
Progress Note: A&P Assessment and Plan (1) Sepsis: Qualifiers: Sepsis type: sepsis due to unspecified organism Sepsis acute organ dysfunction status: with acute organ dysfunction Severe sepsis acute organ dysfunction type: encephalopathy Severe sepsis shock status: without septic shock Qualified Code(s): A41.9 - Sepsis, unspecified organism; R65.20 - Severe sepsis without septic shock; G93.40 - Encephalopathy, unspecified Code(s): A41.9 - Sepsis, unspecified organism Status: Acute Assessment and Plan: 02/03/2022 interval history: 76-year-old female with history of proximal atrial fibrillation presented atrial fibrillation with RVR patient was started on diltiazem drip the rate is trending the drip was stopped, and currently patient is on Coreg 25 mg b.i.d. diltiazem 240 mg q.day and anticoagulated with Eliquis, seen by chief jailer recommended to continue present management and monitor, also with shortness of breath suspect congestive heart failure etiology uncertain patient is being diuresed with IV Lasix 40 mg b.i.d. patient will have a cardiac echo to further evaluate, patient is also found to be and septic secondary to UTI patient is being treated with ceftriaxone 1 g q.day will increased 2g q.day, will follow urine and blood culture and sensitivity and further recommendation to follow, will continue to monitor. (2) Acute respiratory failure with hypoxia: Code(s): J96.01 - Acute respiratory failure with hypoxia Status: Acute (3) Atrial fibrillation with rapid ventricular response: Code(s): I48.91 - Unspecified atrial fibrillation Status: Acute (4) Acute urinary retention: Code(s): R33.8 - Other retention of urine Status: Acute (5) Dementia: Qualifiers: Dementia type: unspecified type Dementia severity: moderate Dementia behavioral or psychological symptom: with mood disturbance Qualified Code(s): F03.B3 - Unspecified dementia, moderate, with mood disturbance Code(s): F03.90 - Unspecified dementia, unspecified severity, without behavioral disturbance, psychotic disturbance, mood disturbance, and anxiety Status: Acute (6) CHF exacerbation: Qualifiers: Heart failure type: diastolic Qualified Code(s): I50.33 - Acute on chronic diastolic (congestive) heart failure Code(s): I50.9 - Heart failure, unspecified Status: Acute (7) Pulmonary edema: Qualifiers: Chronicity: acute Qualified Code(s): J81.0 - Acute pulmonary edema Code(s): J81.1 - Chronic pulmonary edema Status: Acute (8) Bipolar disorder: Qualifiers: Active/Remission status: in remission of unspecified degree Qualified Code(s): F31.70 - Bipolar disorder, currently in remission, most recent episode unspecified Code(s): F31.9 - Bipolar disorder, unspecified Status: Acute (9) Obstructive sleep apnea treated with BiPAP: Code(s): G47.33 - Obstructive sleep apnea (adult) (pediatric) Status: Acute Plan Sepsis criteria met on admission with UTI, tachycardia, tachypnea and metabolic encephalopathy resulting in delirium. She had associated acute hypoxic respiratory failure. Respiratory failure was also multifactorial due to CHF exacerbation and AFib RVR. Patient has been placed on Lasix IV b.i.d.. Will continue monitor strict I&O's and daily weights. Patient been placed on empiric antibiotic therapy with Rocephin and blood cultures urine cultures are pending. Unfortunately patient's E test complicated by urinary retention likely due to a combination of patient's surgery for spinal stenosis, opiate pain medication use and continuation of the patient's home oxybutynin. The patient hypoxia has improved with nasal cannula oxygen. When the patient falls asleep she does have abdominal respirations and appears to be distressed. But patient admits that she does have obstructive sleep apnea at home and uses a
--- NOTE | 2022-02-03 18:37 | PC.NURSE ---
This RN spoke to daughter Naima in regards to patient's home medication Fluvoxamine Maleate and her concerns as to why patient was unable to receive medication at the hospital. RN explained to daughter that the medication would need to be brought in from home. Daughter was unable to obtain medication from [facility] or pharmacy that patient uses. This RN called [facility] and spoke with OMAR Reyna, and was told that the patient was changed to Abilify prior to discharge from [facility] and patient was no longer taking aforementioned medication. RN relayed this information to patient's daughter, who was unaware of these changes. She will be looking into why her mother was changed on these medications, and 'wishes for her mother to continue on the medications she has been on for years.' Will continue to monitor.
[2022-02-03] MEDS: rOPINIRole HCL 1 MG TABLET 3 MG PO (21:28)
[2022-02-04] VITALS (22 sets, daily range): BP systolic 108–142; BP diastolic 42–64; PULSE 67–98; RESP 15–22; TEMP 36.4–36.8; O2SAT 90–98
[2022-02-04 04:56] LABS: Hematocrit 28.1 % (37.0-47.0); Hemoglobin 8.8 g/dL (12.0-15.0); Mean Corpuscular HGB Conc 31.3 g/dl (32-36); Mean Corpuscular Hemoglobin 31.4 pg (26-34); Mean Corpuscular Volume 100.4 fl (80-100); Platelet Count Result 319 k/mm3 (150-375); Red Cell Distribution Width 13.6 % (11.5-14.5); White Blood Count 9.3 K/mm3 (4.5-10.0)
[2022-02-04 05:11] LABS: Alanine Aminotransferase 20 U/L (6-35); Albumin Level 3.3 g/dL (3.5-5.1); Alkaline Phosphatase 77 U/L (38-126); Anion Gap 10 mmol/L (8-16); Aspartate Amino Transferase 21 U/L (14-36); Bilirubin,Total 0.3 mg/dL (0.2-1.3); Blood Urea Nitrogen 16 mg/dL (7-17); Calcium 8.3 mg/dL (8.4-10.2); Carbon Dioxide 35 mmol/L (22-30); Chloride 95 mmol/L (98-107); Estimated CRCL calculation 61 ml/min; Estimated Glomerular Filt Rate > 60; Glucose 104 mg/dL (65-110); Potassium 3.2 mmol/L (3.4-5.0); Sodium 140 mmol/L (137-145)
--- NOTE | 2022-02-04 09:18 | PM.IMPN ---
Progress Note: A&P Assessment and Plan (1) Sepsis: Qualifiers: Sepsis type: sepsis due to unspecified organism Sepsis acute organ dysfunction status: with acute organ dysfunction Severe sepsis acute organ dysfunction type: encephalopathy Severe sepsis shock status: without septic shock Qualified Code(s): A41.9 - Sepsis, unspecified organism; R65.20 - Severe sepsis without septic shock; G93.40 - Encephalopathy, unspecified Code(s): A41.9 - Sepsis, unspecified organism Status: Acute (2) Acute respiratory failure with hypoxia: Code(s): J96.01 - Acute respiratory failure with hypoxia Status: Acute (3) Atrial fibrillation with rapid ventricular response: Code(s): I48.91 - Unspecified atrial fibrillation Status: Acute (4) Acute urinary retention: Code(s): R33.8 - Other retention of urine Status: Acute (5) Dementia: Qualifiers: Dementia type: unspecified type Dementia severity: moderate Dementia behavioral or psychological symptom: with mood disturbance Qualified Code(s): F03.B3 - Unspecified dementia, moderate, with mood disturbance Code(s): F03.90 - Unspecified dementia, unspecified severity, without behavioral disturbance, psychotic disturbance, mood disturbance, and anxiety Status: Acute (6) CHF exacerbation: Qualifiers: Heart failure type: diastolic Qualified Code(s): I50.33 - Acute on chronic diastolic (congestive) heart failure Code(s): I50.9 - Heart failure, unspecified Status: Acute (7) Pulmonary edema: Qualifiers: Chronicity: acute Qualified Code(s): J81.0 - Acute pulmonary edema Code(s): J81.1 - Chronic pulmonary edema Status: Acute (8) Bipolar disorder: Qualifiers: Active/Remission status: in remission of unspecified degree Qualified Code(s): F31.70 - Bipolar disorder, currently in remission, most recent episode unspecified Code(s): F31.9 - Bipolar disorder, unspecified Status: Acute (9) Obstructive sleep apnea treated with BiPAP: Code(s): G47.33 - Obstructive sleep apnea (adult) (pediatric) Status: Acute Plan 02/02/22 Sepsis criteria met on admission with UTI, tachycardia, tachypnea and metabolic encephalopathy resulting in delirium.? She had associated acute hypoxic respiratory failure.? Respiratory failure was also multifactorial due to CHF exacerbation and AFib RVR.? Patient has been placed on Lasix IV b.i.d..? Will continue monitor strict I&O's and daily weights.? Patient been placed on empiric antibiotic therapy with Rocephin and blood cultures urine cultures are pending.? Unfortunately patient's E test complicated by urinary retention likely due to a combination of patient's surgery for spinal stenosis, opiate pain medication use and continuation of the patient's home oxybutynin.? The patient hypoxia has improved with nasal cannula oxygen.? When the patient falls asleep she does have abdominal respirations and appears to be distressed.? But patient admits that she does have obstructive sleep apnea at home and uses a BiPAP.? Patient's heart rate has improved with Cardizem drip.? Patient on 15 mg of Cardizem continuous.? Will wean down by 5 mg if heart rate maintaining less than 100. 02/03/22 76-year-old female with history of proximal atrial fibrillation presented atrial fibrillation with RVR patient was started on diltiazem drip the rate is trending the drip was stopped,? and currently patient is on Coreg 25 mg b.i.d. diltiazem 240 mg q.day and anticoagulated with Eliquis, seen by lawn service supervisor recommended to continue present management and monitor,? also with shortness of breath suspect congestive heart failure etiology uncertain patient is being diuresed with IV Lasix 40 mg b.i.d. patient will have a cardiac echo to further evaluate, patient is also found to be and septic secondary to UTI patient is being treated with ceftriaxone 1 g q.day will increase
[2022-02-04] MEDS: traMADol HCL (*CRX) 50 MG TABLET PO (09:38)
[2022-02-04] MEDS: carvediloL 12.5 MG TABLET 25 MG PO ×2 (09:39→21:42)
[2022-02-04] MEDS: DULoxetine HCL 60 MG CAPSULE.DR PO (09:40)
[2022-02-04] MEDS: lamoTRIgine 100 MG TABLET 200 MG PO ×2 (09:40→21:42)
[2022-02-04] MEDS: APIXABAN 5 MG TABLET PO ×2 (09:40→21:43)
[2022-02-04] MEDS: ARIPiprazole 5 MG TABLET PO (09:40)
[2022-02-04] MEDS: FERROUS SULFATE 324 MG TABLET PO (09:40)
[2022-02-04] MEDS: QUEtiapine FUMARATE 12.5 MG TABLET PO ×2 (09:40→21:43)
[2022-02-04] MEDS: MEMANTINE 5 MG TABLET PO (09:40)
[2022-02-04] MEDS: PANTOPRAZOLE 40 MG TABLET PO (09:40)
[2022-02-04] MEDS: EZETIMIBE 10 MG TABLET PO (09:41)
[2022-02-04] MEDS: FUROSEMIDE INJ 40 MG/4 ML VIAL IV PUSH ×2 (09:41→16:48)
[2022-02-04] MEDS: lisinopriL 10 MG TABLET PO ×2 (09:41→16:48)
[2022-02-04] MEDS: PRAVASTATIN SODIUM 20 MG TABLET PO (09:41)
[2022-02-04] MEDS: POTASSIUM CHLORIDE 20 MEQ PACKET (FOR LIQUID) 40 MEQ PO (09:44)
[2022-02-04] MEDS: PERFLUTREN LIPID MICROSPHERES 1.5 ML VIAL DILUTED TO 10 ML TOTAL VOLUME IV PUSH (10:08)
--- NOTE | 2022-02-04 10:09 | IVDEFINITY ---
Prior to administration of IV Definity the patient was educated on the risks and benefits of the imaging enhancing agent including potential adverse side effects. The patient verbalized understanding. Allergies were verified. No exclusion criteria were identified and at least one of the following inclusion criteria were met: 1) physician request, 2) patient technically difficult to image (per the [place] [employer] guidelines of two or more segments not discernable within the apical view), or 3) questionable left ventricular function. ?
--- NOTE | 2022-02-04 14:28 | PM.PNCARD ---
Progress Note: A&P Assessment and Plan (1) Atrial fibrillation with rapid ventricular response: Code(s): I48.91 - Unspecified atrial fibrillation Status: Acute Assessment and Plan: Patient presented with AFib with RVR and evidence of decompensated heart failure improved with O2 supplementation common noninvasive positive pressure ventilation, and intravenous diuretic. Monitor renal function electrolytes. -maintaining sinus rhythm on carvedilol 25 mg twice daily and diltiazem 240 mg daily. Continue Eliquis 5 mg twice daily. H&H stable although she remains anemic. She will follow-up with her former physical optics teacher as an outpatient upon discharge. (2) CHF exacerbation: Qualifiers: Heart failure type: diastolic Qualified Code(s): I50.33 - Acute on chronic diastolic (congestive) heart failure Code(s): I50.9 - Heart failure, unspecified Status: Acute Assessment and Plan: Patient is nearing euvolemia. Replete potassium to around 4.0. Change Lasix to 40 p.o. b.i.d. starting tomorrow morning if able to wean O2.-2.2 L thus far. (3) Acute respiratory failure with hypoxia: Code(s): J96.01 - Acute respiratory failure with hypoxia Status: Acute Assessment and Plan: Per primary service. Wean O2 as tolerated. (4) Obstructive sleep apnea treated with BiPAP: Code(s): G47.33 - Obstructive sleep apnea (adult) (pediatric) Status: Acute Assessment and Plan: Continue noninvasive positive pressure ventilation. (5) Sepsis: Qualifiers: Sepsis type: sepsis due to unspecified organism Sepsis acute organ dysfunction status: with acute organ dysfunction Severe sepsis acute organ dysfunction type: encephalopathy Severe sepsis shock status: without septic shock Qualified Code(s): A41.9 - Sepsis, unspecified organism; R65.20 - Severe sepsis without septic shock; G93.40 - Encephalopathy, unspecified Code(s): A41.9 - Sepsis, unspecified organism Status: Acute Assessment and Plan: Per primary service. Remains on IV antibiotics. Afebrile, leukocytosis resolved. (6) Acute UTI: Code(s): N39.0 - Urinary tract infection, site not specified Status: Acute Assessment and Plan: IV antibiotics. Per primary service. PT OT (7) Anemia: Code(s): D64.9 - Anemia, unspecified Status: Acute Assessment and Plan: Stable. Monitor H&H. Monitor for bleeding. Stable thus far Subjective Date/time seen: Date of service: 02/04/22 14:28 Follow-up for AFib with RVR No new issues overnight. Patient remains mildly confused but improved overall. She states her breathing is much better but remains on 4 L nasal cannula at 100% saturation. Fair urine output with diuresis. She denies chest pain or palpitations. She remains in sinus rhythm tolerating oral medications. She complains of back discomfort due to positioning in the bed she believes. Review of Systems Review of Systems: All systems reviewed & are unremarkable except as noted in HPI and below Constitutional: Constitutional: Reports as per HPI and Reports no additional constitutional complaints Eyes: Eyes: Reports as per HPI and Reports no additional eye complaints ENT: Reports system reviewed and no additional complaints, except as documented and Reports as per HPI Cardiovascular: Cardiovascular: Reports as per HPI and Reports no additional cardiovascular complaints Respiratory: Respiratory: Reports as per HPI and Reports no additional respiratory complaints Gastrointestinal: Gastrointestinal: Reports as per HPI and Reports no additional gastrointestinal complaints Genitourinary: Genitourinary: Reports as per HPI Musculoskeletal: Musculoskeletal: Reports no additional musculoskeletal complaints and Reports as per HPI Integumentary/Breasts: Skin/Breast: Reports system reviewed and no additional complaints, except as docu and Reports as per HPI Neurologi
--- NOTE | 2022-02-04 16:03 | ECHO_ITS ---
Patient Info Name: Mela Castañeda Age: 76 years : 1945 Gender: Female Ht: 60 in Wt: 213 lbs BSA: 2.08 m2 HR: 73 bpm BP: 122 / 53 mmHg Heart Rhythm: Sinus Rhythm Technical Quality: Fair Exam Date: 02/04/2022 10:02 AM Exam Location: [facility] Pulmonary Patient Status: Inpatient Admit Date: 02/02/2022 Staff Ordering Physician: Gurjit Romero MD [employer] Lab Analyst: Mandy Mix RDCS Attending Provider: Kiesha Shields DO Referring Physician: Nick GUILLERMO; Exam Type: CA echo dop color flow w con Study Info Indications - afib, chf Complete two-dimensional, color flow and Doppler transthoracic echocardiogram is performed with contrast to opacify the left ventricle and to improve the deliniation of the left ventricle endocardial borders. Contrast/Agitated Saline Contrast/Ag. Saline: Definity Amount: 2.00 ml Administered By: Mandy Mix RDCS Existing IV Access: Yes IV Access Condition: patent with no signs of infiltration Summary 1. Left ventricular chamber dimension is normal. 2. Left ventricular systolic function is normal, estimated at 65-70%. 3. There is mildly increased left ventricular wall thickness. 4. The left ventricular diastolic function is grade II diastolic dysfunction. 5. There is no aortic valve stenosis. 6. There is mild mitral valve regurgitation. 7. There is trace tricuspid valve regurgitation. 8. No pulmonary hypertension, estimated pulmonary arterial systolic pressure is 28 mmHg. 9. Dilated inferior vena cava with <50% collapse upon inspiration consistent with elevated right atrial pressure, 10 mmHg. Left Ventricle Left ventricular chamber dimension is normal. Left ventricular systolic function is normal, estimated at 65-70%. There is mildly increased left ventricular wall thickness. The left ventricular diastolic function is grade II diastolic dysfunction. Right Ventricle Right ventricular chamber dimension is normal. Right ventricular systolic function is normal. Left Atria Left atrial chamber dimension is mildly enlarged. Right Atria Right atrial chamber dimension is normal. Aortic Valve The aortic valve is trileaflet. There is no aortic valve stenosis. There is no aortic valve regurgitation. Pulmonic Valve The pulmonic valve is not well visualized. There is mild pulmonic regurgitation. Mitral Valve The mitral valve has thickened leaflets. There is mild mitral valve regurgitation. The mitral valve annulus is moderately calcified. Tricuspid Valve The tricuspid valve leaflets are normal. There is trace tricuspid valve regurgitation. No pulmonary hypertension, estimated pulmonary arterial systolic pressure is 28 mmHg. Pericardium/Pleural The pericardium appears normal. There is trivial pericardial effusion. Inferior Vena Cava Dilated inferior vena cava with <50% collapse upon inspiration consistent with elevated right atrial pressure, 10 mmHg. Aorta The aortic root size at the sinus of Valsalva is normal. Left Ventricular Outflow Tract Name Value Normal LVOT 2D LVOT Diameter 1.97 cm LVOT Doppler
[2022-02-04] MEDS: rOPINIRole HCL 1 MG TABLET 3 MG PO (21:43)
[2022-02-05] VITALS (15 sets, daily range): BP systolic 100–137; BP diastolic 45–89; PULSE 70–91; RESP 16–24; TEMP 36.6–37.1; O2SAT 92–96
[2022-02-05 04:39] LABS: Alanine Aminotransferase 21 U/L (6-35); Albumin Level 3.4 g/dL (3.5-5.1); Alkaline Phosphatase 82 U/L (38-126); Anion Gap 10 mmol/L (8-16); Aspartate Amino Transferase 23 U/L (14-36); Bilirubin,Total 0.3 mg/dL (0.2-1.3); Blood Urea Nitrogen 14 mg/dL (7-17); Calcium 8.4 mg/dL (8.4-10.2); Carbon Dioxide 36 mmol/L (22-30); Chloride 93 mmol/L (98-107); Estimated CRCL calculation 53 ml/min; Estimated Glomerular Filt Rate > 60; Glucose 104 mg/dL (65-110); Potassium 3.5 mmol/L (3.4-5.0); Sodium 139 mmol/L (137-145)
[2022-02-05] MEDS: DULoxetine HCL 60 MG CAPSULE.DR PO (09:14)
[2022-02-05] MEDS: PRAVASTATIN SODIUM 20 MG TABLET PO (09:14)
[2022-02-05] MEDS: APIXABAN 5 MG TABLET PO ×2 (09:14→20:54)
[2022-02-05] MEDS: MEMANTINE 5 MG TABLET PO (09:14)
[2022-02-05] MEDS: FERROUS SULFATE 324 MG TABLET PO (09:14)
[2022-02-05] MEDS: carvediloL 12.5 MG TABLET 25 MG PO ×2 (09:15→20:54)
[2022-02-05] MEDS: ARIPiprazole 5 MG TABLET PO (09:15)
[2022-02-05] MEDS: FUROSEMIDE 40 MG TABLET PO ×2 (09:15→17:14)
[2022-02-05] MEDS: EZETIMIBE 10 MG TABLET PO (09:15)
[2022-02-05] MEDS: PANTOPRAZOLE 40 MG TABLET PO (09:15)
[2022-02-05] MEDS: lisinopriL 10 MG TABLET PO ×2 (09:15→17:14)
[2022-02-05] MEDS: QUEtiapine FUMARATE 12.5 MG TABLET PO ×2 (09:15→20:54)
[2022-02-05] MEDS: lamoTRIgine 100 MG TABLET 200 MG PO ×2 (09:15→20:54)
[2022-02-05] MEDS: ACETAMINOPHEN 325 MG TABLET 650 MG PO (09:25)
--- NOTE | 2022-02-05 09:40 | PM.PNCARD ---
Progress Note: A&P Assessment and Plan (1) Atrial fibrillation with rapid ventricular response: Code(s): I48.91 - Unspecified atrial fibrillation <MYA Sanchez - Last Filed: 02/05/22 10:28> Status: Acute <MYA Sanchez - Last Filed: 02/05/22 10:28> Assessment and Plan: Patient presented with AFib with RVR and evidence of decompensated heart failure. Improved with O2 supplementation, noninvasive positive pressure ventilation, and intravenous diuretic. Monitor renal function electrolytes. -maintaining sinus rhythm on carvedilol 25 mg twice daily and diltiazem 240 mg daily. Continue Eliquis 5 mg twice daily. H&H stable although she remains anemic. She will follow-up with her former manufacturing engineer chief as an outpatient upon discharge. <MYA Sanchez - Last Filed: 02/05/22 10:28> (2) CHF exacerbation: Qualifiers: Heart failure type: diastolic Qualified Code(s): I50.33 - Acute on chronic diastolic (congestive) heart failure <MYA Sanchez - Last Filed: 02/05/22 10:28> Code(s): I50.9 - Heart failure, unspecified <MYA Sanchez - Last Filed: 02/05/22 10:28> Status: Acute <MYA Sanchez - Last Filed: 02/05/22 10:28> Assessment and Plan: Patient is nearing euvolemia. Replete potassium to around 4.0. On p.o. furosemide. <MYA Sanchez - Last Filed: 02/05/22 10:28> (3) Acute respiratory failure with hypoxia: Code(s): J96.01 - Acute respiratory failure with hypoxia <MYA Sanchez - Last Filed: 02/05/22 10:28> Status: Acute <MYA Sanchez - Last Filed: 02/05/22 10:28> Assessment and Plan: Per primary service. Wean O2 as tolerated. <MYA Sanchez - Last Filed: 02/05/22 10:28> (4) Obstructive sleep apnea treated with BiPAP: Code(s): G47.33 - Obstructive sleep apnea (adult) (pediatric) <MYA Sanchez - Last Filed: 02/05/22 10:28> Status: Acute <MYA Sanchez - Last Filed: 02/05/22 10:28> Assessment and Plan: Continue noninvasive positive pressure ventilation. <MYA Sanchez - Last Filed: 02/05/22 10:28> (5) Sepsis: Qualifiers: Sepsis acute organ dysfunction status: with acute organ dysfunction Sepsis type: sepsis due to unspecified organism Severe sepsis acute organ dysfunction type: encephalopathy Severe sepsis shock status: without septic shock Qualified Code(s): A41.9 - Sepsis, unspecified organism; R65.20 - Severe sepsis without septic shock; G93.40 - Encephalopathy, unspecified <MYA Sanchez - Last Filed: 02/05/22 10:28> Code(s): A41.9 - Sepsis, unspecified organism <SRAVANTHI SanchezC - Last Filed: 02/05/22 10:28> Status: Acute <MYA Sanchez - Last Filed: 02/05/22 10:28> Assessment and Plan: Per primary service. Remains on IV antibiotics. Afebrile, leukocytosis resolved. <MYA Sanchez - Last Filed: 02/05/22 10:28> (6) Acute UTI: Code(s): N39.0 - Urinary tract infection, site not specified <MYA Sanchez - Last Filed: 02/05/22 10:28> Status: Acute <MYA Sanchez - Last Filed: 02/05/22 10:28> Assessment and Plan: IV antibiotics. Per primary service. PT OT <MYA Sanchez - Last Filed: 02/05/22 10:28> (7) Anemia: Code(s): D64.9 - Anemia, unspecified <MYA Sanchez - Last Filed: 02/05/22 10:28> Status: Acute <MYA Sanchez - Last Filed: 02/05/22 10:28> Assessment and Plan: Stable. Monitor H&H. Monitor for bleeding. Stable thus far <MYA Sanchez - Last Filed: 02/05/22 10:28> Assessment and Plan: Attending addendum: I agree with the above documentation and plan of care as outlined. <Gurjit Romero MD - Last Filed: 02/05/22 12:20> Subjective Date/time seen: 02/05/22 09:40 Cardiology
--- NOTE | 2022-02-05 13:02 | P.PNIM_ITS ---
Progress Note: A&P Assessment and Plan (1) Sepsis: Qualifiers: Sepsis type: sepsis due to unspecified organism Sepsis acute organ dysfunction status: with acute organ dysfunction Severe sepsis acute organ dysfunction type: encephalopathy Severe sepsis shock status: without septic shock Qualified Code(s): A41.9 - Sepsis, unspecified organism; R65.20 - Severe sepsis without septic shock; G93.40 - Encephalopathy, unspecified Code(s): A41.9 - Sepsis, unspecified organism Status: Acute (2) Acute respiratory failure with hypoxia: Code(s): J96.01 - Acute respiratory failure with hypoxia Status: Acute (3) Atrial fibrillation with rapid ventricular response: Code(s): I48.91 - Unspecified atrial fibrillation Status: Acute (4) Acute urinary retention: Code(s): R33.8 - Other retention of urine Status: Acute (5) Dementia: Qualifiers: Dementia type: unspecified type Dementia severity: moderate Dementia behavioral or psychological symptom: with mood disturbance Qualified Code(s): F03.B3 - Unspecified dementia, moderate, with mood disturbance Code(s): F03.90 - Unspecified dementia, unspecified severity, without behavioral disturbance, psychotic disturbance, mood disturbance, and anxiety Status: Acute (6) CHF exacerbation: Qualifiers: Heart failure type: diastolic Qualified Code(s): I50.33 - Acute on chronic diastolic (congestive) heart failure Code(s): I50.9 - Heart failure, unspecified Status: Acute (7) Pulmonary edema: Qualifiers: Chronicity: acute Qualified Code(s): J81.0 - Acute pulmonary edema Code(s): J81.1 - Chronic pulmonary edema Status: Acute (8) Bipolar disorder: Qualifiers: Active/Remission status: in remission of unspecified degree Qualified Code(s): F31.70 - Bipolar disorder, currently in remission, most recent episode unspecified Code(s): F31.9 - Bipolar disorder, unspecified Status: Acute (9) Obstructive sleep apnea treated with BiPAP: Code(s): G47.33 - Obstructive sleep apnea (adult) (pediatric) Status: Acute Plan 02/02/22 Sepsis criteria met on admission with UTI, tachycardia, tachypnea and metabolic encephalopathy resulting in delirium.? She had associated acute hypoxic respiratory failure.? Respiratory failure was also multifactorial due to CHF exacerbation and AFib RVR.? Patient has been placed on Lasix IV b.i.d..? Will continue monitor strict I&O's and daily weights.? Patient been placed on empiric antibiotic therapy with Rocephin and blood cultures urine cultures are pending.? Unfortunately patient's E test complicated by urinary retention likely due to a combination of patient's surgery for spinal stenosis, opiate pain medication use and continuation of the patient's home oxybutynin.? The patient hypoxia has improved with nasal cannula oxygen.? When the patient falls asleep she does have abdominal respirations and appears to be distressed.? But patient admits that she does have obstructive sleep apnea at home and uses a BiPAP.? Patient's heart rate has improved with Cardizem drip.? Patient on 15 mg of Cardizem continuous.? Will wean down by 5 mg if heart rate maintaining less than 100. 02/03/22 76-year-old female with history of proximal atrial fibrillation presented atrial fibrillation with RVR patient was started on diltiazem drip the rate is trending the drip was stopped,? and currently patient is on Coreg 25 mg b.i.d. diltiazem 240 mg q.day and anticoagulated with Eliquis, seen by fuse maker recommended to continue present management and monitor,? also wit
--- NOTE | 2022-02-05 13:45 | PCRCNOTE ---
HOME O2 EVAL NOT REQUIRED. PT DISCHARGING TO [facility]
--- NOTE | 2022-02-05 14:23 | PC.NURSE ---
On 02/05/22, the student, [Jaleesa Anne], provided care and completed [employer] documentation on this patient. I have reviewed the student's documentation and agree with the findings.
[2022-02-05 19:11] LABS: Glucose Point of Care 128 mg/dl (65-105)
[2022-02-05] MEDS: rOPINIRole HCL 1 MG TABLET 3 MG PO (20:53)
[2022-02-06] VITALS (9 sets, daily range): BP systolic 109–126; BP diastolic 35–65; PULSE 68–94; RESP 15–20; TEMP 36.4–36.7; O2SAT 95–100
[2022-02-06 05:02] LABS: Alanine Aminotransferase 20 U/L (6-35); Albumin Level 3.2 g/dL (3.5-5.1); Alkaline Phosphatase 92 U/L (38-126); Anion Gap 6 mmol/L (8-16); Aspartate Amino Transferase 25 U/L (14-36); Bilirubin,Total 0.2 mg/dL (0.2-1.3); Blood Urea Nitrogen 15 mg/dL (7-17); Calcium 8.3 mg/dL (8.4-10.2); Carbon Dioxide 34 mmol/L (22-30); Chloride 96 mmol/L (98-107); Estimated CRCL calculation 53 ml/min; Estimated Glomerular Filt Rate > 60; Glucose 100 mg/dL (65-110); Potassium 3.6 mmol/L (3.4-5.0); Sodium 136 mmol/L (137-145)
[2022-02-06] MEDS: QUEtiapine FUMARATE 12.5 MG TABLET PO (08:45)
[2022-02-06] MEDS: lisinopriL 10 MG TABLET PO (08:45)
[2022-02-06] MEDS: FUROSEMIDE 40 MG TABLET PO (08:45)
[2022-02-06] MEDS: carvediloL 12.5 MG TABLET 25 MG PO (08:45)
[2022-02-06] MEDS: DULoxetine HCL 60 MG CAPSULE.DR PO (08:45)
[2022-02-06] MEDS: PRAVASTATIN SODIUM 20 MG TABLET PO (08:45)
[2022-02-06] MEDS: ARIPiprazole 5 MG TABLET PO (08:45)
[2022-02-06] MEDS: FERROUS SULFATE 324 MG TABLET PO (08:45)
[2022-02-06] MEDS: PANTOPRAZOLE 40 MG TABLET PO (08:45)
[2022-02-06] MEDS: lamoTRIgine 100 MG TABLET 200 MG PO (08:45)
[2022-02-06] MEDS: MEMANTINE 5 MG TABLET PO (08:45)
[2022-02-06] MEDS: APIXABAN 5 MG TABLET PO (08:45)
[2022-02-06] MEDS: EZETIMIBE 10 MG TABLET PO (08:45)
--- NOTE | 2022-02-06 11:28 | PCOTNOTE ---
Patient drowsy, unable to stay awake when this DUMAS attempted to see patient. Patient declined OT, stating Come on, man. Will try patient again later if time to see for OT.
[2022-02-06] MEDS: traMADol HCL (*CRX) 50 MG TABLET PO (12:15)
--- NOTE | 2022-02-06 12:27 | PM.PNCARD ---
Progress Note: A&P Assessment and Plan (1) Atrial fibrillation with rapid ventricular response: Code(s): I48.91 - Unspecified atrial fibrillation Status: Acute Plan Continue the current regimen regarding her atrial fibrillation. Will continue to monitor this while she is in the hospital with you. Apparently upon discharge plans are in place for follow-up with her established seaport planning manager elsewhere. Xavier Mclean MD [facility] Subjective Date/time seen: Date of service: 02/06/22 12:27 Interval history: Follow-up visit in this 76-year-old woman with: Paroxysmal atrial fibrillation currently in sinus rhythm with carvedilol and diltiazem treatment. Systemically anticoagulated with apixaban. She has no cardiovascular complaints today is having some low back pain following physical therapy. Exam Narrative: General: Pleasant elderly female sitting upright bed initially sleeping easily arousable alert orientedx2, mildly confused but improved answering most questions appropriately. No apparent distress, mildly uncomfortable due to back pain, pleasant, and cooperative. Head: atraumatic, normocephalic Eyes: EOM intact, sclerae anicteric, conjunctivae unremarkable Ears/Nose: external inspection of ears and nose were grossly normal Mouth/Throat: oral mucosa pink and moist Neck: supple, normal range of motion, no jugular venous distention or carotid bruits, thyroid nonpalpable, trachea midline. Cardiac: Regular rate and rhythm, normal S1-S2, no murmurs Lungs: Diminished breath sounds diffusely, faint bibasilar crackles, no wheezes, or rhonchi. Abdomen: Obese, Soft, nontender, nondistended, positive bowel sounds throughout. No appreciable hepatosplenomegaly, rebound guarding or rigidity noted. Abdominal aorta nonpalpable, no appreciable bruits. Extremities: No edema, no clubbing, or cyanosis. Extremities warm and well perfused. Skin: Warm and dry without ecchymoses, rashes, and/or petechiae. Musculoskeletal: Muscle strength and tone intact throughout without obvious deformities. Vascular: Carotid upstrokes 2+ bilaterally, radial pulses 2+ bilaterally, dorsalis pedis pulses 1+ bilaterally Neurologic: Cranial nerves 2-12 grossly intact, examination grossly nonfocal Psychiatric: Mood calm and appropriate. Const: General: comfortable, no acute distress, alert and awake Orientation/consciousness: patient oriented x3 Other: Pleasant woman sitting in the chair eating breakfast. HENMT: Head: normal to inspection Eyes: General: appearance normal, both eyes and all related structures Pupils: Equal, round and reactive pupils present Neck: Neck: normal visual inspection, supple and no JVD Carotids: normal carotid upstroke Resp: Effort & Inspection: normal respiratory effort Auscultation: crackles (faint crackles L base ) Cardio: Rate: regular rate Rhythm: regular rhythm Heart sounds: S1 normal heart sound present, S2 normal heart sound present and no murmurs GI: Auscultation: normal bowel sounds Urinary Catheter: Urinary Catheter: patent and draining Skin: General skin exam: normal color Other: No edema Neuro: General: patient oriented x3 Cranial nerves: Yes Equal, round and reactive pupils present Extrem: General: normal to inspection Psych: Appearance: grossly normal Mental Status: mental status grossly normal Objective Data Vital Signs Vital Signs: Vital Signs - 24 hr 02/05/22 14:00 02/05/22 16:00 02/05/22 16:00 Temperature Pulse Rate 73 79 Respiratory Rate Blood Pressure Pulse Oximetry 94 Oxygen Delivery Nasal Cannula Oxygen Flow Rate 2 02/05/22 16:00 02/05/22 18:00 02/05/22 20:00 Temperature 36.7 C 37.0 C Pulse Rate 76 87 91 Respiratory Rate 20 20 Blood Pressure 127/45 L 121/89 Pulse Oximetry 92 92 Oxygen Delivery Oxygen Flow Rate 02/05/22 21:04 02/05/22 22:26 02/05/22 20:0
--- NOTE | 2022-02-06 13:02 | PM.DS ---
DS: Admitting Diagnosis Discharge Date 02/06/22 Admitting Diagnosis (1) Sepsis: ?Qualifiers: ? (2) Acute respiratory failure with hypoxia: ?Code(s): (3) Atrial fibrillation with rapid ventricular response: ?Code(s): (4) Acute urinary retention: ?Code(s): (5) Dementia: ?Qualifiers: (6) CHF exacerbation: ?Qualifiers: ? ? ? (7) Pulmonary edema: ?Qualifiers: ? ? (8) Bipolar disorder: ?Qualifiers: ? (9) Obstructive sleep apnea treated with BiPAP: ?Code(s): DS: Summary Hospital Course Reason for hospitalization: Confusion and difficulty breathing Hospital Course: 02/02/22 Sepsis criteria met on admission with UTI, tachycardia, tachypnea and metabolic encephalopathy resulting in delirium.? She had associated acute hypoxic respiratory failure.? Respiratory failure was also multifactorial due to CHF exacerbation and AFib RVR.? Patient has been placed on Lasix IV b.i.d..? Will continue monitor strict I&O's and daily weights.? Patient been placed on empiric antibiotic therapy with Rocephin and blood cultures urine cultures are pending.? Unfortunately patient's E test complicated by urinary retention likely due to a combination of patient's surgery for spinal stenosis, opiate pain medication use and continuation of the patient's home oxybutynin.? The patient hypoxia has improved with nasal cannula oxygen.? When the patient falls asleep she does have abdominal respirations and appears to be distressed.? But patient admits that she does have obstructive sleep apnea at home and uses a BiPAP.? Patient's heart rate has improved with Cardizem drip.? Patient on 15 mg of Cardizem continuous.? Will wean down by 5 mg if heart rate maintaining less than 100. 02/03/22 76-year-old female with history of proximal atrial fibrillation presented atrial fibrillation with RVR patient was started on diltiazem drip the rate is trending the drip was stopped,? and currently patient is on Coreg 25 mg b.i.d. diltiazem 240 mg q.day and anticoagulated with Eliquis, seen by parachute panel joiner recommended to continue present management and monitor,? also with shortness of breath suspect congestive heart failure etiology uncertain patient is being diuresed with IV Lasix 40 mg b.i.d. patient will have a cardiac echo to further evaluate, patient is also found to be and septic secondary to UTI patient is being treated with ceftriaxone 1 g q.day will increased 2g q.day, will follow urine and blood culture and sensitivity and further recommendation to follow,? will continue to monitor. 02/04/22 stable on NC delirium appears to be improving from previous note descriptions afib rate relatively controlled anticipate HR to improve on current regimen, cardio following recs appreciated wean O2 as tolerated cont rocephin until UCx results K repleted dc planning to [facility] 02/05/22 vol status improved remains on 4L NC -> weaned to 2 during my visit K repleted to goal of 4 cont to wean from oxygen home O2 eval PT/OT dc to [facility] soon 02/06/22 no weaning trial available at this hospital per RT, pt will be discharged on 2L and evaluated at SNF discharge in stable condition to [facility] f/u w [place] Chief of pt's preference f/u w PCP within 1 week Status at Discharge Cognitive/behavioral status at discharge: at baseline Functional status at discharge: uses cane/walker Time Spent with Patient Time attestation: Total time spent providing and/or coordinating discharge services: DS: Data Data Completed and Pending Labs on day of discharge: Labs from last 24 hours 02/06/22 02/05/22 04:28 19:04 Sodium 136 L Potassium 3.6 Chloride 96 L Carbon Dioxide 34 H Anion Gap 6 L BUN 15 Creatinine 0.80 Estim Creat Clear Calc 53 Estimated GFR > 60 Glucose 100 POC Capillary Glucose 128 H Calcium 8.3 L Total Bilirubin 0.2 AST 25 ALT 20 Alkaline Phosphatase 92 Tot
[2022-02-06 14:32] LABS: EDCOVIDSCREEN Negative (Negative)
== END 2022-02-06 17:24 | DRG 871 ==
LOC: ANHED 17:05 → ANHIMU 23:31
PROVIDERS: Emergency Medicine; Family Medicine; Admitting Provider Internal Medicine; Emergency Provider Emergency Medicine; Visit Provider Hospitalist
DX: A41.9 Sepsis, unspecified organism (principal); G93.41 Metabolic encephalopathy; J96.01 Acute respiratory failure with hypoxia; I50.33 Acute on chronic diastolic (congestive) heart failure; N39.0 Urinary tract infection, site not specified; I48.20 Chronic atrial fibrillation, unspecified; R65.20 Severe sepsis without septic shock; I11.0 Hypertensive heart disease with heart failure; D64.9 Anemia, unspecified; R33.9 Retention of urine, unspecified; E78.5 Hyperlipidemia, unspecified; G47.33 Obstructive sleep apnea (adult) (pediatric); G25.81 Restless legs syndrome; F03.90 Unspecified dementia, unspecified severity, without behavioral disturbance, psychotic disturbance, mood disturbance, and anxiety; F31.9 Bipolar disorder, unspecified; Z20.822 Contact with and (suspected) exposure to COVID-19; Z96.651 Presence of right artificial knee joint; Z79.01 Long term (current) use of anticoagulants; Z98.890 Other specified postprocedural states
CPT/HCPCS: 36415; 36600; 71045; 71275; 80048; 80053; 81001; 82805; 82948; 83605; 83735; 83880; 85025; 85027; 85610; 85730; 87040; 87077; 87086; 87186; 87426; 93005; 96365; 96366; 96368; 96375; 96376; 97110; 97162; 97165; 97530; 97535; 99285; A9270; C8929; C9803; J0696; J1940; Q9957; Q9967; U0003; U0005

== ENCOUNTER 2022-03-12 11:31 | Emergency (ER) | payer MEDICARE, SELFPAY ==
[2022-03-12 11:36] VITALS: BP 136/56; PULSE 77; RESP 16; TEMP 37.2; O2SAT 98
[2022-03-12 12:37] LABS: Appearance Urine Clear (Clear); Bilirubin Urine Negative (Negative); Blood Urine Negative (Negative); Color Urine Yellow (Yellow); Glucose Urine UA Negative (Negative); Ketones Urine Negative (Negative); Leukocyte Esterase Ur Trace LEU/UL (Negative); Nitrate Urine Positive (Negative); Protein Urine Negative (Negative); Urobilinogen Urine 0.2 mg/dL (<2.0); pH Urine 5.5 (5.0-9.0)
[2022-03-12 12:42] LABS: Mucus Urine Rare /lpf; RBC Urine 0-2 /hpf (0-2); Squamous Epithelial Cell Urine Rare /hpf (Few); WBC Urine 0-3 /hpf
--- NOTE | 2022-03-12 12:44 | ED.FEMALEGU ---
HPI - Female Genitourinary General Chief complaint: Urogenital-Female Stated complaint: urine problems Time Seen by Provider: 03/12/22 12:19 History of Present Illness HPI Narrative: Patient is a 76-year-old female who presents ER with urinary frequency. Began yesterday. Has history of recurrent UTIs and sepsis and she did not want to have that occur again so she came in today. No fevers or chills or sweats. Patient feels like she cannot urinate today. No lower abdominal pain. No back pain. No dysuria. Related Data Home Medications Medication Instructions Recorded Confirmed apixaban 5 mg tablet (Eliquis) 5 mg PO BID 10/22/21 02/03/22 duloxetine 60 mg capsule,delayed 60 mg PO DAILY 10/22/21 02/03/22 release sprinkle ezetimibe 10 mg tablet 10 mg PO DAILY 10/22/21 02/03/22 ferrous sulfate 325 mg (65 mg 325 mg PO DAILY 10/22/21 02/03/22 iron) tablet (FeroSul) lamotrigine 200 mg tablet 200 mg PO BID 10/22/21 02/03/22 lisinopril 10 mg tablet 10 mg PO BID 10/22/21 02/03/22 memantine 5 mg tablet 5 mg PO QAM 10/22/21 02/03/22 omeprazole 20 mg tablet,delayed 20 mg PO DAILY 10/22/21 02/03/22 release oxybutynin chloride 5 mg tablet 5 mg PO BID 10/22/21 02/03/22 pravastatin 20 mg tablet 20 mg PO DAILY 10/22/21 02/03/22 ropinirole 3 mg tablet 3 mg PO HS 10/22/21 02/03/22 acetaminophen 650 mg 650 mg PO Q8H PRN Pain (Scale 02/03/22 02/03/22 tablet,extended release Score 1-3) aripiprazole 5 mg tablet 5 mg PO DAILY 02/03/22 02/03/22 cholecalciferol (vitamin D3) 125 125 mcg PO WEEKLY 02/03/22 02/03/22 mcg (5,000 unit) tablet diltiazem HCl 240 mg capsule,24 240 mg PO DAILY 02/03/22 02/03/22 hr,extended release fluvoxamine 50 mg tablet 50 mg PO DAILY 02/03/22 02/04/22 ibuprofen 400 mg tablet 800 mg PO TID PRN fever or pain 02/03/22 02/03/22 meloxicam 15 mg tablet 15 mg PO DAILY 02/03/22 02/03/22 quetiapine 25 mg tablet (Seroquel) 12.5 mg PO BID 02/03/22 02/03/22 tramadol 50 mg tablet 50 mg PO Q6H PRN Pain (Scale Score 02/03/22 02/03/22 7-10) Allergies Allergy/AdvReac Type Severity Reaction Status Date / Time adhesive tape AdvReac Rash Verified 03/12/22 11:38 Review of Systems Review of Systems: All systems reviewed & are unremarkable except as noted in HPI and below Constitutional: Constitutional: Denies chills and Denies fatigue Gastrointestinal: Gastrointestinal: Denies abdominal pain, Denies nausea and Denies vomiting Genitourinary: Genitourinary: Reports nocturia, Denies dysuria and Denies flank pain Comments: Urinary retention Musculoskeletal: Musculoskeletal: Denies myalgias, Denies arthralgias and Denies joint swelling PMFSH Past Medical History Medical History (Updated 03/12/22 @ 15:03 by Pablo Kaur MD) Anemia Atrial fibrillation/flutter Bipolar disorder CHF (congestive heart failure) Dementia Gastritis Hyperlipidemia Hypertension Obstructive sleep apnea treated with BiPAP Restless legs syndrome (RLS) Urge urinary incontinence Surgical History Surgical History (Updated 02/03/22 @ 04:50 by Kiesha Shields DO) History of back surgery Decompression of lumbar spinal stenosis 01/27/2022 Status post cataract extraction of both eyes with insertion of intraocular lens Status post open reduction with internal fixation of fracture (~1987) Left ankle fracture with subsequent removal of hardware 2007 Status post right knee replacement Family History Family History Mother CHF (congestive heart failure) Diabetes mellitus Hypertension Father Lung cancer Social History Social History Smoking status: Never smoker Alcohol intake: never Substance use: never Substance use type: does not use Gender identity (if verbalized by the patient): Female Spiritual care concerns: No Exam Narrative: GENERAL: Well-appearing, well-nourished, and in no acute distress. HEAD
[2022-03-12 13:07] LABS: Add Urine Microscopic? YES
[2022-03-12 13:51] VITALS: PULSE 79; RESP 20
[2022-03-12 16:06] VITALS: BP 155/62; PULSE 83; RESP 14; O2SAT 95
== END 2022-03-12 16:10 | disposition home or self-care (01) ==
PROVIDERS: Emergency Medicine; Emergency Provider Emergency Medicine
DX: N39.0 Urinary tract infection, site not specified (principal); I48.91 Unspecified atrial fibrillation; I48.92 Unspecified atrial flutter; I50.9 Heart failure, unspecified; I11.0 Hypertensive heart disease with heart failure; E78.5 Hyperlipidemia, unspecified; F03.90 Unspecified dementia, unspecified severity, without behavioral disturbance, psychotic disturbance, mood disturbance, and anxiety; Z79.01 Long term (current) use of anticoagulants; G47.33 Obstructive sleep apnea (adult) (pediatric); G25.81 Restless legs syndrome; Z98.42 Cataract extraction status, left eye; Z98.41 Cataract extraction status, right eye; Z96.1 Presence of intraocular lens; Z96.651 Presence of right artificial knee joint
CPT/HCPCS: 51702; 81001; 99283

== ENCOUNTER 2022-07-03 09:16 | Inpatient (IN) | payer MEDICARE, SELFPAY ==
[2022-07-03] VITALS (25 sets, daily range): BP systolic 105–182; BP diastolic 48–85; PULSE 61–87; RESP 12–29; TEMP 36–36.6; O2SAT 80–100; BMI 40.1
--- NOTE | 2022-07-03 | ECHO_ITS ---
Patient Info Name: Mela Castañeda Age: 77 years : 1945 Gender: Female Ht: 64 in Wt: 218 lbs BSA: 2.16 m2 HR: 61 bpm BP: 108 / 83 mmHg Heart Rhythm: Sinus Rhythm Technical Quality: Fair Exam Date: 07/03/2022 2:57 PM Exam Location: [facility] Pulmonary Exam Room: [facility] ER 4 Patient Status: Inpatient Admit Date: 07/03/2022 Staff Ordering Physician: Holly Moyer NP Staffing Rn: Penny Ramos RDCS Attending Provider: Sneha Bassett MD Referring Physician: João RODRIGUEZ; Exam Type: CA echo doppler color flow Study Info Indications - CHF Complete two-dimensional, color flow and Doppler transthoracic echocardiogram is performed. Summary 1. Complete two-dimensional, color flow and Doppler transthoracic echocardiogram is performed. 2. There is mild concentric increased left ventricular wall thickness. 3. Left ventricular systolic function is normal, estimated at 65-70%. 4. The left ventricular diastolic function is grade II diastolic dysfunction. 5. Left atrial chamber dimension is mildly enlarged. 6. No significant valvular dysfunction. 7. Compared to echocardiogram from January of 2022 there are no differences. Left Ventricle Left ventricular chamber dimension is normal. Left ventricular systolic function is normal, estimated at 65-70%. There is mild concentric increased left ventricular wall thickness. The left ventricular diastolic function is grade II diastolic dysfunction. Right Ventricle Right ventricular chamber dimension is normal. Left Atria Left atrial chamber dimension is mildly enlarged. Right Atria Right atrial chamber dimension is normal. Aortic Valve The aortic valve is normal. Pulmonic Valve The pulmonic valve is normal. Mitral Valve The mitral valve has normal leaflets. Tricuspid Valve The tricuspid valve leaflets are normal. Pericardium/Pleural The pericardium appears normal. Aorta The aortic root size at the sinus of Valsalva is normal. Left Ventricular Outflow Tract Name Value Normal LVOT 2D LVOT Diameter 2.0 cm LVOT Doppler LVOT Peak Gradient 5 mmHg LVOT Mean Gradient 3 mmHg LVOT VTI 26 cm LVOT VTI/AV VTI Ratio 0.7 LVOT Stroke Volume 87 ml LVOT CO 17.5 l/min LVOT CI 8.1 l/min/m2 Pulmonic Valve Name Value Normal PV Doppler PV Peak Gradient 4 mmHg Mitral Valve Name Value Normal MV Doppler MV Decel Harper
--- NOTE | ~2022-07-03 | US_ITS ---
EXAMINATION: US abdomen limited DATE: 07/06/2022 17:53 INDICATION: abnormality of Gall bladder on CT chest TECHNIQUE: Multiple grayscale and Doppler ultrasound images of limited portions of the abdomen were o btained. COMPARISON: CTPA 07/05/2022. FINDINGS: Mildly dilated pancreatic duct measuring 3 mm, the remaining visualized portions of the hernandez creas are normal. The liver is normal with normal echogenicity and echotexture. No surface nodularity . Normal hepatopetal flow in the main portal vein. Mildly distended gallbladder. Somewhat irregular g allbladder wall thickening, measuring up to 3 mm. Trace pericholecystic fluid. No stone or sludge. Th e common bile duct measures 3.2 mm. There was no sonographic Elizabeth sign. IMPRESSION: Irregular gallbladder wall thickening with pericholecystic fluid and mild gallbladder hydrops. Negati ve sonographic Elizabeth sign and no sonographic evidence of gallstones. Consider hepatobiliary scintigr aphy. Reviewed, dictated and finalized at location K. IGERATED NATIONAL TRUCK DRIVER IMPRESSION: Irregular gallbladder wall thickening with pericholecystic fluid and mild gallb ladder hydrops. Negative sonographic Elizabeth sign and no sonographic evidence of gallstones. Consider hepatobiliary scintigraphy.
--- NOTE | ~2022-07-03 | XR_ITS ---
EXAMINATION: XR chest 1V portable DATE: 07/03/2022 10:27 INDICATION: Shortness of breath. TECHNIQUE: A single frontal view of the chest was obtained. COMPARISON: Chest one view 02/02/2022, chest CT 02/02/2022 FINDINGS: The lung volumes are small, just chronic. Calcified pulmonary nodules are consistent with o ld granulomatous disease. There are airspace opacities in the perihilar regions and lower lung zones. No pleural effusion. Cardiomegaly is noted. There is a moderate-sized hiatal hernia. IMPRESSION: 1. Small lung volumes with worsened airspace opacities in the perihilar regions and lower lung zones, consistent with atelectasis versus pneumonia. 2. Cardiomegaly. 3. Moderate-sized hiatal hernia. Reviewed, dictated and finalized at location A. TRON GUN INSPECTOR
--- NOTE | ~2022-07-03 | CT_ITS ---
EXAMINATION: CTA chest PE protocol DATE: 07/05/2022 10:44 INDICATION: Shortness of breath. TECHNIQUE: Computed tomography angiography (CTA) of the chest was performed with 100 mL Omnipaque-350 intravenous contrast timed to evaluate the pulmonary arteries. Coronal maximum intensity projection 3D-reconstructions were created by the technologist. Automated exposure control and iterative reconst ruction technique were employed. The dose-length product was 958.70 mGy-cm. COMPARISON: Chest CT 02/02/2022 FINDINGS: There is chronic elevation of right hemidiaphragm. Calcified pulmonary nodules and calcifie d hilar lymph nodes are consistent with old granulomatous disease. There are airspace opacities in th e right middle lobe, lingula, and the lower lobes with volume loss, likely atelectasis. There is smoo th septal thickening in the lungs, consistent with mild pulmonary edema. Cardiomegaly is noted. There are coronary artery calcifications. No pericardial effusion. There is no pulmonary embolus. There is a moderate-sized sliding hiatal hernia. The gallbladder is distended. Gallbladder wall thickening is noted. There is fat stranding in the abdomen including around the gallbladder. There is severe cervi gurvinder, thoracic, and lumbar spondylosis. IMPRESSION: 1. Mild pulmonary edema with small pleural effusions. 2. No pulmonary embolus. 3. Moderate-sized sliding hiatal hernia. 4. Distended gallbladder with gallbladder wall thickening, which is indeterminate for acute cholecyst itis. Consider hepatobiliary scintigraphy. Reviewed, dictated and finalized at location A. ERMAKER APPRENTICE IMPRESSION: 1. Mild pulmonary edema with small pleural effusions. 2. No pulmonary embolus. 3. Moderate-sized sliding hiatal hernia. 4. Distended gallbladder with gallbladder wall thickening, which is indetermina te for acute cholecystitis. Consider hepatobiliary scintigraphy.
--- NOTE | ~2022-07-03 | CT_ITS ---
EXAMINATION: CT brain wo con INDICATION: Altered mental status COMPARISON: 11/04/2021 TECHNIQUE: Standard unenhanced head CT. The dose-length product (DLP) was 832.33 mGy-cm. The mA was a djusted according to patient size. Iterative reconstruction technique was employed. FINDINGS: There is no acute intraparenchymal hemorrhage. No evidence of mass lesion. No evidence of a cute infarction. There are are old lacunar infarcts of the basal ganglia. There is mild periventricul ar and subcortical hypodensity probably related to small vessel ischemic disease. There is mild promi nence of the sulci and ventricles related to cerebral atrophy. Intracranial calcified cerebral athero sclerosis is noted. There are no extra-axial collections. There is no mass effect or midline shift. C hanges in the globes are likely from ocular lens surgery. The visualized sinuses and mastoid air cell s are well aerated. IMPRESSION: 1. No acute intracranial abnormality. 2. Age related findings. Reviewed, dictated and finalized at location F. E PROJECT MANAGER
--- NOTE | ~2022-07-03 | US_ITS ---
EXAMINATION: US venous doppler [facility] DATE: 07/03/2022 17:21 INDICATION: Bilateral lower limb edema TECHNIQUE: Cole scale images without and with compression and Doppler images of the bilateral lower e xtremity veins were obtained. COMPARISON: 10/22/2021 FINDINGS: The right common femoral vein, profunda femoral vein, femoral vein, popliteal vein, peroneal trunk, p osterior tibial veins, and greater saphenous vein are patent. The left common femoral vein, profunda femoral vein, femoral vein, popliteal vein, peroneal trunk, po sterior tibial veins, and greater saphenous vein are patent. IMPRESSION: 1. Patent bilateral lower extremity veins. No evidence of deep venous thrombosis. Reviewed, dictated and finalized at location F. SPORTATION WORKER IMPRESSION: 1. Patent bilateral lower extremity veins. No evidence of deep venous thrombosi s.
--- NOTE | 2022-07-03 09:28 | ECG_ITS ---
Measurements Intervals [place] Rate: 64 P: 18 MA: 194 QRS: 21 QRSD: 192 T: -2 QT: 442 QTc: 459 Interpretive Statements SINUS RHYTHM RIGHT BUNDLE BRANCH BLOCK BASELINE WANDER- I, II, III, AVR, V5-V6 ABNORMAL ECG COMPARED TO ECG 02/03/2022 14:15:44 NO SIGNIFICANT CHANGES Electronically Signed On 07-03-2022 10:02:45 MEDICAL DOSIMETRIST by Octavio Barker D.O.
--- NOTE | 2022-07-03 09:30 | ED.GENADULT ---
HPI - General Adult General Chief complaint: Altered Mental Status Stated complaint: Altered mental status Time Seen by Provider: 07/03/22 09:28 History of Present Illness HPI narrative: 77-year-old female presenting [place] the emergency department [facility]. Patient does have history of COPD and this was to be on 2 L of oxygen by nasal cannula time. Patient was found in the hallway in a wheelchair and off of her oxygen. Patient was somnolent but responds to verbal stimuli. Unknown how long patient had been off of her oxygen in the hallway and if she had been off of her oxygen in her apartment. Patient was hypoxic to EMS that she was placed on 15 L by nonrebreather. This did help the patient oxygen saturation. Upon arrival to the ED patient is somnolent but does still continue to arouse to verbal stimuli. Related Data Home Medications Medication Instructions Recorded Confirmed apixaban 5 mg tablet (Eliquis) 5 mg PO BID 10/22/21 07/03/22 duloxetine 60 mg capsule,delayed 60 mg PO DAILY 10/22/21 07/03/22 release sprinkle ezetimibe 10 mg tablet 10 mg PO DAILY 10/22/21 07/03/22 lamotrigine 200 mg tablet 200 mg PO BID 10/22/21 07/03/22 memantine 5 mg tablet 5 mg PO QAM 10/22/21 07/03/22 omeprazole 20 mg tablet,delayed 20 mg PO DAILY 10/22/21 07/03/22 release pravastatin 20 mg tablet 20 mg PO DAILY 10/22/21 07/03/22 ropinirole 3 mg tablet 3 mg PO HS 10/22/21 07/03/22 acetaminophen 650 mg 650 mg PO Q8H PRN Pain (Scale 02/03/22 07/03/22 tablet,extended release Score 1-3) cholecalciferol (vitamin D3) 125 125 mcg PO WEEKLY 02/03/22 07/03/22 mcg (5,000 unit) tablet diltiazem HCl 240 mg capsule,24 240 mg PO DAILY 02/03/22 07/03/22 hr,extended release ibuprofen 400 mg tablet 800 mg PO TID PRN fever or pain 02/03/22 07/03/22 meloxicam 15 mg tablet 15 mg PO DAILY 02/03/22 07/03/22 quetiapine 25 mg tablet (Seroquel) 12.5 mg PO BID 02/03/22 07/03/22 gabapentin 100 mg tablet 200 mg PO HS 07/03/22 07/03/22 omeprazole 20 mg capsule,delayed 20 mg DAILY 07/03/22 07/03/22 release potassium chloride 10 mEq 10 meq PO DAILY 07/03/22 07/03/22 tablet,extended release tamsulosin 0.4 mg capsule 0.4 mg PO BID 07/03/22 07/03/22 Allergies Allergy/AdvReac Type Severity Reaction Status Date / Time adhesive tape AdvReac Rash Verified 03/12/22 11:38 Review of Systems Review of Systems: ROS unobtainable: Yes unobtainable due to medical condition [facility] Past Medical History Medical History (Updated 07/03/22 @ 20:05 by Macario Monae MD) Anemia Atrial fibrillation/flutter Bipolar disorder CHF (congestive heart failure) Chronic GERD Dementia Gastritis Hyperlipidemia Hypertension Obstructive sleep apnea treated with BiPAP Restless legs syndrome (RLS) Urge urinary incontinence Surgical History Surgical History History of back surgery Decompression of lumbar spinal stenosis 01/27/2022 Status post cataract extraction of both eyes with insertion of intraocular lens Status post open reduction with internal fixation of fracture (~1987) Left ankle fracture with subsequent removal of hardware 2007 Status post right knee replacement Family History Family History Mother CHF (congestive heart failure) Diabetes mellitus Hypertension Father Lung cancer Social History Social History (Updated 07/03/22 @ 15:45 by Holly Moyer NP) Social History: she lives alone at a local orthopedic physician assistant living. She has 2 children. she is retired from factory work. She wears oxygen at home 2 L per nasal cannula. She is wheelchair-bound code status full code Smoking status: Never smoker Alcohol intake: never Substance use: never Substance use type: does not use Lack of Transportation: No Lack of Food: Never True Current Housing: I Have Housing Concerned About Future Housing: No Difficulty Paying
[2022-07-03 09:52] LABS: Basophils Percent Auto 0.3 % (0.2-1.2); Eosinophils Absolute Auto 0.2 K/mm3 (0-0.3); Eosinophils Percent Auto 1.7 % (0-4.4); Hematocrit 29.5 % (37.0-47.0); Hemoglobin 8.5 g/dL (12.0-15.0); Immature Granulocyte Absolute 0.06 K/mm3 (0.00-0.031); Immature Granulocyte Percent A 0.4 % (0-0.5); Lymphocytes Absolute Auto 0.71 K/mm3 (0.9-3.2); Lymphocytes Percent Auto 5.2 % (18.3-44.2); Mean Corpuscular HGB Conc 28.8 g/dl (32-36); Mean Corpuscular Hemoglobin 31.4 pg (26-34); Mean Corpuscular Volume 108.9 fl (80-100); Mean Platelet Volume 11.2 fl (7.4-10.4); Monocytes Absolute Auto 1.1 K/mm3 (0.1-0.6); Monocytes Percent Auto 7.7 % (2.6-8.5); Neutrophils Absolute Auto 11.7 K/mm3 (1.3-6.7); Neutrophils Percent Auto 84.7 % (45.5-73.1); Platelet Count Result 214 k/mm3 (150-375); Red Blood Count 2.71 M/mm3 (4.2-5.4); Red Cell Distribution Width 15.8 % (11.5-14.5); White Blood Count 13.8 K/mm3 (4.5-10.0)
[2022-07-03 10:05] LABS: Chloride 95 mmol/L (98-107)
[2022-07-03 10:17] LABS: Alanine Aminotransferase 17 U/L (6-35); Alkaline Phosphatase 88 U/L (38-126); Anion Gap 5 mmol/L (8-16); Aspartate Amino Transferase 25 U/L (14-36); Bilirubin,Total 0.5 mg/dL (0.2-1.3); Blood Urea Nitrogen 15 mg/dL (7-17); Calcium 8.5 mg/dL (8.4-10.2); Carbon Dioxide 38 mmol/L (22-30); Estimated Glomerular Filt Rate > 60; Glucose 110 mg/dL (65-110); Potassium 3.5 mmol/L (3.4-5.0); Sodium 138 mmol/L (137-145)
[2022-07-03 10:18] LABS: Hypochromasia 2+ (NORMAL); Platelet Estimate Adequate (Adequate)
[2022-07-03 10:19] LABS: Anisocytosis 1+ (NORMAL); Macrocytosis 1+ (NORMAL); Schistocytes None Seen (NORMAL); Stomatocytes 1+ (NORMAL)
[2022-07-03 11:08] LABS: Alveolar/Arterial O2 Gradient 135.5 mmHg; Base Excess ABG 9.4 mEq/l (+/-2.0); Carboxyhemoglobin 0.9 % THb (0-2.0); Fractional Inspired Oxygen 40 %; HCO3 ABG 37.3 mEq/l (22.0-26.0); Methemoglobin ABG 0.3 %THb (0-1.5); Oxygen Content ABG 11.6 %vol (16.0-22.0); Oxygen Saturation ABG 89.8 % (95.0-100.0); Oxyhemoglobin 88.8 % THb (90.0-100.0); PO2 ABG 64.3 mmHg (80.0-100.0); PO2 FiO2 Ratio Arterial Blood 1.61 %; Total Hemoglobin 9.2 g/dL (12.0-18.0); pH ABG 7.318 (7.350-7.450)
[2022-07-03 11:14] LABS: PCO2 ABG 74.3 mmHg (35.0-45.0)
[2022-07-03 11:15] LABS: Device NON-INVASIVE VENT; Modified Allen's Test Pass; Non-Invasive Vent Rate 18 /MIN; Site Drawn RIGHT RADIAL
[2022-07-03] MEDS: SODIUM CHLORIDE 0.9% IV 1,000 ML 999 ML IV CONT (11:15)
[2022-07-03 11:16] LABS: Non-Invasive Expiratory Pressure 6 CMH2O; Non-Invasive Inspiratory Pressure 14 CMH2O
--- NOTE | 2022-07-03 12:58 | PM.IMHP ---
H&P: HPI History of Present Illness Date/Time: 07/03/22 12:58 Chief Complaint: altered mental status Narrative: this is a 77-year-old female patient who resides in nursing assistants teacher living. The daughter is at the bedside answering questions. The patient does have a history of COPD and has been on oxygen at 2 L per nasal cannula. However today the patient was found in the hallway in the wheelchair with her oxygen off. The patient was very somnolent but did respond to verbal stimuli. The patient was found to be hypoxic when EMS was activated. The patient was placed on 15 L per nasal cannula non-rebreather. This did improve her O2 saturations. White count is 13.8. H&H is 8.5 and 29.5. ABGs pH 7.3188 CO2 was 74.3. The patient had positive urine nitrate and 4+ bacteria. The patient was found to be negative for influenza A/B RSV and COVID. Chest x-ray was read as small lung volumes with worsened airspace opacities in the perihilar regions and lower lung zones. Consistent with atelectasis versus pneumonia. Cardiomegaly. Moderate size hiatal hernia. The patient was given a azithromycin and Rocephin. The patient is being admitted to inpatient status on the date of service of 07/03/2022 Review of Systems Review of Systems: see HPI All systems reviewed & are unremarkable except as noted in HPI and below Constitutional: Constitutional: Reports as per HPI and Reports no additional constitutional complaints Eyes: Eyes: Reports as per HPI and Reports no additional eye complaints ENT: Reports system reviewed and no additional complaints, except as documented and Reports Normal hearing present Cardiovascular: Cardiovascular: Reports no additional cardiovascular complaints Respiratory: Respiratory: Reports no additional respiratory complaints and Reports no additional respiratory complaints Gastrointestinal: Gastrointestinal: Reports as per HPI and Reports no additional gastrointestinal complaints Musculoskeletal: Musculoskeletal: Reports no additional musculoskeletal complaints Integumentary/Breasts: Skin/Breast: Reports system reviewed and no additional complaints, except as docu and Reports as per HPI Neurologic: Reports system reviewed and no additional complaints, except as documented, Reports as per HPI and Reports Normal hearing present Psychiatric: Psychiatric: Reports no additional psychiatric complaints and Reports as per HPI Endocrine: Endocrine: Reports no additional endocrine complaints Hematologic/Lymphatic: Hematologic/Lymphatic: Reports no additional hematologic/lymphatic complaints Allergic/Immunologic: Allergic/Immunologic: Reports no additional allergic/immunologic complaints PMFSH Past Medical History Medical History (Updated 07/03/22 @ 15:44 by Holly Moyer NP) Anemia Atrial fibrillation/flutter Bipolar disorder CHF (congestive heart failure) Chronic GERD Dementia Gastritis Hyperlipidemia Hypertension Obstructive sleep apnea treated with BiPAP Restless legs syndrome (RLS) Urge urinary incontinence Surgical History Surgical History History of back surgery Decompression of lumbar spinal stenosis 01/27/2022 Status post cataract extraction of both eyes with insertion of intraocular lens Status post open reduction with internal fixation of fracture (~1987) Left ankle fracture with subsequent removal of hardware 2007 Status post right knee replacement Family History Family History Mother CHF (congestive heart failure) Diabetes mellitus Hypertension Father Lung cancer Social History Social History (Updated 07/03/22 @ 15:45 by Holly Moyer NP) Social History: she lives alone at a local nursing assistants teacher living. She has 2 children. she is retired from factory work. She wears oxygen at home 2 L per nasal cannula. She is wheelchair-bound code status full code Smoking status:
[2022-07-03 13:05] LABS: Appearance Urine Clear (Clear); Bacteria Urine 4+ /hpf; Bilirubin Urine Negative (Negative); Blood Urine Negative (Negative); Color Urine Yellow (Yellow); Glucose Urine UA Negative (Negative); Ketones Urine Negative (Negative); Leukocyte Esterase Ur Negative LEU/UL (Negative); Mucus Urine Present /lpf; Nitrate Urine Positive (Negative); Protein Urine Trace mg/dL (Negative); RBC Urine 0-2 /hpf (0-2); Specific Grav Ur 1.016 (1.001-1.035); Squamous Epithelial Cell Urine None seen /hpf (Few); WBC Urine 0-5 /hpf; Waxy Casts Urine Present /lpf
[2022-07-03 13:07] LABS: Add Urine Microscopic? YES
[2022-07-03 14:21] LABS: Influenza A QL RT-PCR Negative (Negative); Influenza B QL RT-PCR Negative (Negative); RSV RNA, RT-PCR Negative (Negative); SARS-CoV-2 RNA PCR Negative
[2022-07-03 17:16] LABS: Alveolar/Arterial O2 Gradient 204.2 mmHg; Base Excess ABG 3.5 mEq/l (+/-2.0); Fractional Inspired Oxygen 50 %; HCO3 ABG 30.4 mEq/l (22.0-26.0); Oxygen Content ABG 11.9 %vol (16.0-22.0); Oxygen Saturation ABG 95.5 % (95.0-100.0); Oxyhemoglobin 93.7 % THb (90.0-100.0); PCO2 ABG 59.8 mmHg (35.0-45.0); Total Hemoglobin 8.9 g/dL (12.0-18.0); pH ABG 7.324 (7.350-7.450)
[2022-07-03 17:17] LABS: Site Drawn LEFT BRACHIAL
[2022-07-03 17:18] LABS: Device NON-INVASIVE VENT; Non-Invasive Inspiratory Pressure 14 CMH2O; Non-Invasive Vent Rate 18 /MIN
[2022-07-03 17:19] LABS: Non-Invasive Expiratory Pressure 6 CMH2O
--- NOTE | 2022-07-03 18:53 | ADMGEN ---
This patient, Mela Castañeda, was admitted to IMU Room 202-01. Patient/family oriented to hospital policies and general routines including ID bracelet, bed and alarms, visiting hours, pain management, procedures, bathroom and other care routines, personal items, smoking policy, room service/diet, and visiting hours. Information on how to activate the Rapid Response Team has been discussed. Patient/Family are encouraged to report perceived risks to care and to ask questions if they do not understand what they are told or what they should do.
[2022-07-03] MEDS: ALBUTEROL SULFATE NEB 2.5 MG/3 ML INH INHALATION (20:26)
[2022-07-03] MEDS: IPRATROPIUM BR 0.02% INH SOLN 0.5 MG/2.5 ML VIAL INHALATION (20:26)
[2022-07-04] VITALS (32 sets, daily range): BP systolic 106–155; BP diastolic 42–85; PULSE 73–102; RESP 15–23; TEMP 36–37.4; O2SAT 93–99
[2022-07-04] MEDS: QUEtiapine FUMARATE 12.5 MG TABLET PO ×3 (00:31→17:07)
[2022-07-04] MEDS: GABAPENTIN 100 MG CAPSULE 200 MG PO ×2 (00:31→21:01)
[2022-07-04] MEDS: rOPINIRole HCL 1 MG TABLET 3 MG PO ×2 (00:31→21:01)
[2022-07-04] MEDS: carvediloL 25 MG TABLET PO ×3 (00:32→21:00)
[2022-07-04] MEDS: lamoTRIgine 100 MG TABLET 200 MG PO ×3 (00:32→17:07)
[2022-07-04] MEDS: APIXABAN 5 MG TABLET PO ×3 (00:32→17:07)
[2022-07-04] MEDS: TAMSULOSIN HCL 0.4 MG CAPSULE PO ×3 (00:32→17:07)
[2022-07-04] MEDS: ALBUTEROL SULFATE NEB 2.5 MG/3 ML INH INHALATION ×4 (02:19→20:45)
[2022-07-04] MEDS: IPRATROPIUM BR 0.02% INH SOLN 0.5 MG/2.5 ML VIAL INHALATION ×4 (02:19→20:45)
[2022-07-04 05:52] LABS: Basophils Percent Auto 0.4 % (0.2-1.2); Eosinophils Absolute Auto 0.2 K/mm3 (0-0.3); Eosinophils Percent Auto 2.2 % (0-4.4); Hematocrit 27.8 % (37.0-47.0); Hemoglobin 7.8 g/dL (12.0-15.0); Immature Granulocyte Absolute 0.04 K/mm3 (0.00-0.031); Immature Granulocyte Percent A 0.5 % (0-0.5); Lymphocytes Percent Auto 10.8 % (18.3-44.2); Mean Corpuscular HGB Conc 28.1 g/dl (32-36); Mean Corpuscular Hemoglobin 30.7 pg (26-34); Mean Corpuscular Volume 109.4 fl (80-100); Monocytes Absolute Auto 0.8 K/mm3 (0.1-0.6); Monocytes Percent Auto 9.2 % (2.6-8.5); Neutrophils Absolute Auto 6.4 K/mm3 (1.3-6.7); Neutrophils Percent Auto 76.9 % (45.5-73.1); Platelet Count Result 206 k/mm3 (150-375); Red Blood Count 2.54 M/mm3 (4.2-5.4); Red Cell Distribution Width 15.9 % (11.5-14.5); White Blood Count 8.3 K/mm3 (4.5-10.0)
[2022-07-04 06:01] LABS: Alanine Aminotransferase 15 U/L (6-35); Albumin Level 3.5 g/dL (3.5-5.1); Alkaline Phosphatase 76 U/L (38-126); Anion Gap 4 mmol/L (8-16); Aspartate Amino Transferase 19 U/L (14-36); Bilirubin,Total 0.6 mg/dL (0.2-1.3); Blood Urea Nitrogen 11 mg/dL (7-17); Calcium 7.9 mg/dL (8.4-10.2); Carbon Dioxide 39 mmol/L (22-30); Chloride 99 mmol/L (98-107); Estimated CRCL calculation 58 ml/min; Estimated Glomerular Filt Rate > 60; Glucose 86 mg/dL (65-110); Potassium 3.3 mmol/L (3.4-5.0); Sodium 142 mmol/L (137-145)
[2022-07-04 06:17] LABS: Anisocytosis 1+ (NORMAL); Hypochromasia 1+ (NORMAL); Macrocytosis 1+ (NORMAL); Platelet Estimate Adequate (Adequate); Schistocytes None Seen (NORMAL)
[2022-07-04 07:02] LABS: Thyroid Stimulating Hormone Reflex 0.358 uIU/mL (0.465-4.68)
[2022-07-04 07:06] LABS: Folic Acid 13.8 ng/mL (2.76->20)
[2022-07-04 09:15] LABS: Free T4 Free Thyroxine Reflex 1.29 ng/dL (0.78-2.19)
[2022-07-04] MEDS: PRAVASTATIN SODIUM 20 MG TABLET PO (09:29)
[2022-07-04] MEDS: DULoxetine HCL 60 MG CAPSULE.DR PO (09:29)
[2022-07-04] MEDS: POTASSIUM CHLORIDE 10 MEQ TABLET.ER PO (09:29)
[2022-07-04] MEDS: MELOXICAM 7.5 MG TABLET 15 MG PO (09:29)
[2022-07-04] MEDS: EZETIMIBE 10 MG TABLET PO (09:29)
[2022-07-04] MEDS: PANTOPRAZOLE 40 MG TABLET PO (09:29)
[2022-07-04] MEDS: MEMANTINE 5 MG TABLET PO (09:30)
[2022-07-04] MEDS: FUROSEMIDE INJ 40 MG/4 ML VIAL IV PUSH (09:31)
[2022-07-04 11:48] LABS: Alveolar/Arterial O2 Gradient 134.1 mmHg; Base Excess ABG 12.2 mEq/l (+/-2.0); Carboxyhemoglobin 0.4 % THb (0-2.0); Fractional Inspired Oxygen 40 %; HCO3 ABG 39.5 mEq/l (22.0-26.0); Methemoglobin ABG 0.5 %THb (0-1.5); Oxygen Content ABG 11.9 %vol (16.0-22.0); Oxygen Saturation ABG 92.8 % (95.0-100.0); Oxyhemoglobin 92.3 % THb (90.0-100.0); PO2 ABG 70.1 mmHg (80.0-100.0); PO2 FiO2 Ratio Arterial Blood 1.75 %; Reduced Hemoglobin 6.8 %THb (0-5.0); Total Hemoglobin 9.1 g/dL (12.0-18.0); pH ABG 7.367 (7.350-7.450)
[2022-07-04 11:51] LABS: PCO2 ABG 70.4 mmHg (35.0-45.0)
[2022-07-04 11:52] LABS: Device NON-INVASIVE VENT; Site Drawn LEFT BRACHIAL
[2022-07-04 11:53] LABS: Non-Invasive Expiratory Pressure 6 CMH2O; Non-Invasive Inspiratory Pressure 14 CMH2O; Non-Invasive Vent Rate 18 /MIN
[2022-07-04 12:20] LABS: Total Triiodothyronine (T3) 0.96 NG/ML (0.97-1.69)
[2022-07-04 13:27] LABS: Alveolar/Arterial O2 Gradient 129.3 mmHg; Fractional Inspired Oxygen 40 %; HCO3 ABG 41.4 mEq/l (22.0-26.0); Oxygen Content ABG 11.9 %vol (16.0-22.0); Oxygen Saturation ABG 93.4 % (95.0-100.0); Oxyhemoglobin 92.6 % THb (90.0-100.0); PO2 ABG 72.2 mmHg (80.0-100.0); Total Hemoglobin 9.1 g/dL (12.0-18.0); pH ABG 7.373 (7.350-7.450)
[2022-07-04 13:31] LABS: Device NON-INVASIVE VENT; PCO2 ABG 72.8 mmHg (35.0-45.0); Site Drawn LEFT BRACHIAL
[2022-07-04 13:32] LABS: Non-Invasive Expiratory Pressure 6 CMH2O; Non-Invasive Inspiratory Pressure 14 CMH2O; Non-Invasive Vent Rate 18 /MIN
--- NOTE | 2022-07-04 14:05 | PM.IMPN ---
Progress Note: A&P Assessment and Plan (1) Pneumonia: Code(s): J18.9 - Pneumonia, unspecified organism Status: Acute Assessment and Plan: Chest x-ray as per radiology. Small lung volumes with worsened airspace opacities in the perihilar regions and lower lung zones, consistent with atelectasis versus pneumonia. patient was started on azithromycin Rocephin as per community-acquired pneumonia antibiotic stewardship sputum and blood cultures are pending tailor antibiotic to results of culture and sensitivity report continue with nebulizer treatments (2) Acute respiratory failure with hypoxia and hypercarbia: Code(s): J96.01 - Acute respiratory failure with hypoxia; J96.02 - Acute respiratory failure with hypercapnia Status: Acute Assessment and Plan: Secondary to cOPD exacerbation Current patient is on BiPAP Titrate BiPAP setting based on ABG test (3) Hypercapnia: Code(s): R06.89 - Other abnormalities of breathing Status: Acute Assessment and Plan: G (4) Obstructive sleep apnea treated with BiPAP: Code(s): G47.33 - Obstructive sleep apnea (adult) (pediatric) Status: Acute Assessment and Plan: Titrate to home setting once the patient is off of the BiPAP. She may go on a CPAP. (5) CHF exacerbation: Qualifiers: Heart failure type: diastolic Qualified Code(s): I50.33 - Acute on chronic diastolic (congestive) heart failure Code(s): I50.9 - Heart failure, unspecified Status: Acute Assessment and Plan: CXR shows pulmonary congestion Continue with Coreg Possible diastolic dysfunction Continue Lasix 40 mg daily p.o. Follow-up echocardiogram. (6) Acute UTI: Code(s): N39.0 - Urinary tract infection, site not specified Status: Acute Assessment and Plan: the patient is on Rocephin blood and urine cultures are pending tailor antibiotics to culture and sensitivities (7) Hypertension: Code(s): I10 - Essential (primary) hypertension Status: Acute Assessment and Plan: continue with Coreg continue with diltiazem (8) Hyperlipidemia: Code(s): E78.5 - Hyperlipidemia, unspecified Status: Acute Assessment and Plan: heart healthy diet and pravastatin (9) Bipolar disorder: Qualifiers: Active/Remission status: in remission of unspecified degree Qualified Code(s): F31.70 - Bipolar disorder, currently in remission, most recent episode unspecified Code(s): F31.9 - Bipolar disorder, unspecified Status: Acute Assessment and Plan: continue with her home medications. Patient is on Seroquel and Lamictal continue duloxetine (10) Anemia: Code(s): D64.9 - Anemia, unspecified Status: Acute Assessment and Plan: macrocytic anemia the patient is at her baseline. Check vitamin B 12 as well as folate the patient has been on ferrous sulfate (11) Dementia: Qualifiers: Dementia behavioral or psychological symptom: with mood disturbance Dementia severity: moderate Dementia type: unspecified type Qualified Code(s): F03.B3 - Unspecified dementia, moderate, with mood disturbance Code(s): F03.90 - Unspecified dementia, unspecified severity, without behavioral disturbance, psychotic disturbance, mood disturbance, and anxiety Status: Acute Assessment and Plan: continue with Namenda continue with Seroquel (12) Atrial fibrillation/flutter: Status: Acute Assessment and Plan: the patient currently is in sinus rhythm with rate control. The patient is on Eliquis and Coreg as well as diltiazem (13) COPD exacerbation: Code(s): J44.1 - Chronic obstructive pulmonary disease with (acute) exacerbation Status: Acute Assessment and Plan: History of chronic smoking, possible cOPD. Returning from pneumonia Continue antibiotics see above Start Atrovent scheduled e
--- NOTE | 2022-07-04 15:44 | PCRCNOTE ---
SPOKE WITH FAMILY WHO STATE PT. WEARS BIPAP AT HOME NOT CPAP. CPAP ORDER DISCONTINUED PER DR. RIGGINS. DAUGHTER STATES SHE COULD CONTACT THE DME WEDNESDAY TO FIND OUT PT.'S HOME BIPAP SETTINGS.
[2022-07-04] MEDS: methylPREDNISolone SOD SUCC 125 MG VIAL 60 MG IV PUSH (17:07)
[2022-07-04 18:01] LABS: Alveolar/Arterial O2 Gradient 134.3 mmHg; Base Excess ABG 10.5 mEq/l (+/-2.0); Carboxyhemoglobin 0.3 % THb (0-2.0); Fractional Inspired Oxygen 40 %; HCO3 ABG 36.9 mEq/l (22.0-26.0); Methemoglobin ABG 0.4 %THb (0-1.5); Oxygen Content ABG 11.5 %vol (16.0-22.0); Oxygen Saturation ABG 95.3 % (95.0-100.0); Oxyhemoglobin 94.2 % THb (90.0-100.0); PO2 ABG 79.7 mmHg (80.0-100.0); PO2 FiO2 Ratio Arterial Blood 1.99 %; Reduced Hemoglobin 5.1 %THb (0-5.0); Total Hemoglobin 8.6 g/dL (12.0-18.0); pH ABG 7.393 (7.350-7.450)
[2022-07-04 18:04] LABS: Device NON-INVASIVE VENT; Modified Allen's Test Pass; Non-Invasive Expiratory Pressure 6 CMH2O; Non-Invasive Inspiratory Pressure 20 CMH2O; Non-Invasive Vent Rate 20 /MIN; PCO2 ABG 61.9 mmHg (35.0-45.0); Site Drawn LEFT RADIAL
--- NOTE | 2022-07-04 18:27 | PC.NURSE ---
Reviewed [address] Bassett. Per , OK to keep current Bipap settings.
[2022-07-05] VITALS (26 sets, daily range): BP systolic 106–170; BP diastolic 57–80; PULSE 69–93; RESP 20–28; TEMP 36.2–36.7; O2SAT 91–100
[2022-07-05] MEDS: methylPREDNISolone SOD SUCC 125 MG VIAL 60 MG IV PUSH ×5 (00:36→23:38)
[2022-07-05] MEDS: ALBUTEROL SULFATE NEB 2.5 MG/3 ML INH INHALATION ×4 (02:00→20:10)
[2022-07-05] MEDS: IPRATROPIUM BR 0.02% INH SOLN 0.5 MG/2.5 ML VIAL INHALATION ×4 (02:00→20:10)
[2022-07-05] MEDS: HALOPERIDOL LACTATE 5 MG/ML VIAL IM (07:49)
--- NOTE | 2022-07-05 08:32 | ECG_ITS ---
Measurements Intervals [place] Rate: 79 P: 28 AR: 200 QRS: 48 QRSD: 189 T: -5 QT: 434 QTc: 500 Interpretive Statements SINUS RHYTHM RIGHT BUNDLE BRANCH BLOCK BASELINE ARTIFACT- I, II, III, AVR, AVL, AVF, V3-V6 ABNORMAL ECG COMPARED TO ECG 07/03/2022 09:28:59 NO SIGNIFICANT CHANGES Electronically Signed On 07-05-2022 14:31:26 SAP FUNCTIONAL ANALYST by Octavio Barker D.O.
--- NOTE | 2022-07-05 08:45 | PC.NURSE ---
Lab personnel in room to draw labs; asked to come back later due to combative behavior.
--- NOTE | 2022-07-05 08:46 | PC.NURSE ---
Patient complaining fo chest pain its coming up my throat and into my mouth , unable to specify rating. EKG obtained, call placed to Dr Bassett.
--- NOTE | 2022-07-05 08:51 | PC.NURSE ---
repeat call to Dr Bassett, continue to get voicemail. Message previously left, Nurse Jeaneth NELSON and Charge Nurse Quan Ames aware.
[2022-07-05 08:55] LABS: Hematocrit 30.3 % (37.0-47.0); Hemoglobin 8.7 g/dL (12.0-15.0); Mean Corpuscular HGB Conc 28.7 g/dl (32-36); Mean Corpuscular Hemoglobin 30.5 pg (26-34); Mean Corpuscular Volume 106.3 fl (80-100); Mean Platelet Volume 10.8 fl (7.4-10.4); Platelet Count Result 216 k/mm3 (150-375); Red Blood Count 2.85 M/mm3 (4.2-5.4); Red Cell Distribution Width 15.2 % (11.5-14.5); White Blood Count 5.8 K/mm3 (4.5-10.0)
[2022-07-05 09:19] LABS: Anion Gap 9 mmol/L (8-16); Blood Urea Nitrogen 17 mg/dL (7-17); Calcium 8.6 mg/dL (8.4-10.2); Carbon Dioxide 37 mmol/L (22-30); Chloride 95 mmol/L (98-107); Estimated CRCL calculation 57 ml/min; Estimated Glomerular Filt Rate > 60; Glucose 131 mg/dL (65-110); Potassium 3.6 mmol/L (3.4-5.0); Sodium 141 mmol/L (137-145)
--- NOTE | 2022-07-05 09:22 | PC.NURSE ---
Spoke with Dr. Bassett. Notified him of patients new chest pain radiating up into the face and jaw. Notified Dr. EKG was preformed, placed on chart. Trops drawn and pending. VS stable. Family at bedside, Nurse ast bedside monitoring patient.
[2022-07-05 09:30] LABS: Troponin I < 0.012 ng/mL (0.000-0.034)
[2022-07-05] MEDS: LORazepam INJ (*CRX) 2 MG/ML VIAL 0.5 MG IV PUSH (10:13)
[2022-07-05] MEDS: FUROSEMIDE INJ 40 MG/4 ML VIAL IV PUSH (10:39)
--- NOTE | 2022-07-05 13:20 | PHAR ---
The patient's home med of Fluvoxamine 50mg has been verified. 2 tabs sent to pharmacy then we will order.
--- NOTE | 2022-07-05 13:22 | PM.IMPN ---
Progress Note: A&P Assessment and Plan (1) Pneumonia: Code(s): J18.9 - Pneumonia, unspecified organism Status: Acute Assessment and Plan: Chest x-ray as per radiology. Small lung volumes with worsened airspace opacities in the perihilar regions and lower lung zones, consistent with atelectasis versus pneumonia. patient was started on azithromycin Rocephin as per community-acquired pneumonia antibiotic stewardship sputum and blood cultures are pending tailor antibiotic to results of culture and sensitivity report continue with nebulizer treatments (2) Acute respiratory failure with hypoxia and hypercarbia: Code(s): J96.01 - Acute respiratory failure with hypoxia; J96.02 - Acute respiratory failure with hypercapnia Status: Acute Assessment and Plan: Secondary to cOPD exacerbation patient is on BiPAP prn Titrate BiPAP setting based on ABG test CO2 retention is imprpoving (3) Hypercapnia: Code(s): R06.89 - Other abnormalities of breathing Status: Acute Assessment and Plan: G (4) Obstructive sleep apnea treated with BiPAP: Code(s): G47.33 - Obstructive sleep apnea (adult) (pediatric) Status: Acute Assessment and Plan: Titrate to home setting once the patient is off of the BiPAP. She may go on a CPAP. (5) CHF exacerbation: Qualifiers: Heart failure type: diastolic Qualified Code(s): I50.33 - Acute on chronic diastolic (congestive) heart failure Code(s): I50.9 - Heart failure, unspecified Status: Acute Assessment and Plan: CXR shows pulmonary congestion Continue with Coreg Possible diastolic dysfunction hold Lasix 40 mg daily p.o.s/w lasix 20 mg bid ivp Follow-up echocardiogram. (6) Acute UTI: Code(s): N39.0 - Urinary tract infection, site not specified Status: Acute Assessment and Plan: the patient is on Rocephin blood and urine cultures are pending tailor antibiotics to culture and sensitivities (7) Hypertension: Code(s): I10 - Essential (primary) hypertension Status: Acute Assessment and Plan: continue with Coreg continue with diltiazem (8) Hyperlipidemia: Code(s): E78.5 - Hyperlipidemia, unspecified Status: Acute Assessment and Plan: heart healthy diet and pravastatin (9) Bipolar disorder: Qualifiers: Active/Remission status: in remission of unspecified degree Qualified Code(s): F31.70 - Bipolar disorder, currently in remission, most recent episode unspecified Code(s): F31.9 - Bipolar disorder, unspecified Status: Acute Assessment and Plan: continue with her home medications. Patient is on Seroquel and Lamictal continue duloxetine (10) Anemia: Code(s): D64.9 - Anemia, unspecified Status: Acute Assessment and Plan: macrocytic anemia the patient is at her baseline. Check vitamin B 12 as well as folate the patient has been on ferrous sulfate (11) Dementia: Qualifiers: Dementia type: unspecified type Dementia severity: moderate Dementia behavioral or psychological symptom: with mood disturbance Qualified Code(s): F03.B3 - Unspecified dementia, moderate, with mood disturbance Code(s): F03.90 - Unspecified dementia, unspecified severity, without behavioral disturbance, psychotic disturbance, mood disturbance, and anxiety Status: Acute Assessment and Plan: continue with Namenda continue with Seroquel (12) Atrial fibrillation/flutter: Status: Acute Assessment and Plan: the patient currently is in sinus rhythm with rate control. The patient is on Eliquis and Coreg as well as diltiazem (13) COPD exacerbation: Code(s): J44.1 - Chronic obstructive pulmonary disease with (acute) exacerbation Status: Acute Assessment and Plan: History of chronic smoking, possible cOPD. Returning from pneumonia Continu
[2022-07-05] MEDS: MELOXICAM 7.5 MG TABLET 15 MG PO (14:44)
[2022-07-05] MEDS: lamoTRIgine 100 MG TABLET 200 MG PO ×2 (14:44→21:02)
[2022-07-05] MEDS: PANTOPRAZOLE 40 MG TABLET PO (14:45)
[2022-07-05] MEDS: EZETIMIBE 10 MG TABLET PO (14:46)
[2022-07-05] MEDS: PRAVASTATIN SODIUM 20 MG TABLET PO (14:46)
[2022-07-05] MEDS: POTASSIUM CHLORIDE 10 MEQ TABLET.ER PO (14:46)
[2022-07-05] MEDS: carvediloL 25 MG TABLET PO ×2 (14:47→21:02)
[2022-07-05] MEDS: DULoxetine HCL 60 MG CAPSULE.DR PO (14:47)
[2022-07-05] MEDS: QUEtiapine FUMARATE 12.5 MG TABLET PO ×2 (14:48→21:02)
[2022-07-05] MEDS: MEMANTINE 5 MG TABLET PO (14:48)
[2022-07-05] MEDS: APIXABAN 5 MG TABLET PO ×2 (14:49)
--- NOTE | 2022-07-05 16:34 | PC.NURSE ---
0730- pt woke up tore bipap off- pull O2 sensor monitor and heart monitor off- attempted to put monitor on pt - pt grab monitor out of rn hands started slapping at rn and threw monitor on bed -left monitor off - pt hollering aloud- when trying to reorient to place- pt increased aggitation- stated shes in [facility]--- [place]- screaming ; cussing and hollaring at staff. wanted staff to bring her dr spaulding and a steak and cook in front of her; daughter called updated on condition an shes on her way to hospital; called dr arana -he will in to see pt- daughter called 0750- dr arana in room new orders received - daughter also at bedside-unable to calm pt -daughter stated her mom acts like this when off fluvoxamine- pt has not received med for 2 days med has not been available - daughter will go home and get medication this am 0805 IM haldol given @ 0750 ;pt little calmer with daughter at bedside- checked spo2- 79%O2 on 10l nc-95% ; titrated to 3l/nc spo2 93%
[2022-07-05] MEDS: GABAPENTIN 100 MG CAPSULE 200 MG PO (21:01)
[2022-07-05] MEDS: TAMSULOSIN HCL 0.4 MG CAPSULE PO (21:02)
[2022-07-05] MEDS: rOPINIRole HCL 1 MG TABLET 3 MG PO (21:02)
[2022-07-06] VITALS (28 sets, daily range): BP systolic 116–154; BP diastolic 45–89; PULSE 68–107; RESP 18–24; TEMP 36–36.6; O2SAT 90–99
[2022-07-06] MEDS: IPRATROPIUM BR 0.02% INH SOLN 0.5 MG/2.5 ML VIAL INHALATION ×3 (02:00→20:31)
[2022-07-06] MEDS: ALBUTEROL SULFATE NEB 2.5 MG/3 ML INH INHALATION ×3 (02:00→20:31)
[2022-07-06] MEDS: methylPREDNISolone SOD SUCC 125 MG VIAL 60 MG IV PUSH ×2 (04:56→12:05)
--- NOTE | 2022-07-06 08:45 | PM.CNGS ---
Assessment and Plan Assessment and plan (1) Abnormal findings on diagnostic imaging of gallbladder: Code(s): R93.2 - Abnormal findings on diagnostic imaging of liver and biliary tract Status: Acute Assessment and Plan: Findings of gallbladder distention and wall thickening on her CTA yesterday after an episode of chest pain. Her chest pain quickly resolved after she was able to calm down. WBC and LFTs are normal. No history of having any pain following fatty meals and she has had very little to eat since being admitted 3 days ago. Her abdominal exam is benign and she is not complaining of any chest pain or abdominal pain this morning. RUQ abdominal ultrasound ordered for today, will await these results. If there is no evidence of cholecystitis on ultrasound, then the findings on the CTA are more likely incidental and could be somewhat related to her fasting. She is a poor surgical candidate given her multiple co-morbidities listed below and she is also anticoagulated for her atrial fibrillation. If there are findings to suggest acute cholecystitis, then we may need to consider further work-up and could additionally add metronidazole for better antimicrobial coverage for the gallbladder. She seems to be clinically improving with current medical treatment of the pneumonia and acute respiratory failure. At this point, there is low suspicion for acute cholecystitis and her white blood cell count is normal, so we will wait for the ultrasound to decide on further plan of care. Discussed the treatment plan with the patient and called her daughter with the patient's permission. (2) Chest pain: Code(s): R07.9 - Chest pain, unspecified Status: Acute Assessment and Plan: Resolved. EKG without acute changes and troponin negative. Does not seem to be related to her gallbladder. See plan above. (3) Pneumonia: Code(s): J18.9 - Pneumonia, unspecified organism Status: Acute Assessment and Plan: Continue antibiotics and medical management per primary service. (4) COPD (chronic obstructive pulmonary disease): Code(s): J44.9 - Chronic obstructive pulmonary disease, unspecified Status: Acute (5) Chronic respiratory failure: Code(s): J96.10 - Chronic respiratory failure, unspecified whether with hypoxia or hypercapnia Status: Acute Assessment and Plan: Chronically on 2 liters oxygen via nasal cannula at the skilled nursing. (6) Obstructive sleep apnea treated with BiPAP: Code(s): G47.33 - Obstructive sleep apnea (adult) (pediatric) Status: Acute (7) Atrial fibrillation with rapid ventricular response: Code(s): I48.91 - Unspecified atrial fibrillation Status: Acute Assessment and Plan: Appears to be in rate-controlled atrial fibrillation on telemetry this morning. No complaints of chest pain today. EKG yesterday showed sinus rhythm. (8) Anticoagulated by anticoagulation treatment: Code(s): Z79.01 - correction (current) use of anticoagulants Status: Acute Assessment and Plan: Currently on Eliquis 5 mg BID for atrial fibrillation. Last dose yesterday evening. Morning dose today held while waiting for ultrasound. (9) Hypertension: Code(s): I10 - Essential (primary) hypertension Status: Acute (10) Bipolar disorder: Qualifiers: Active/Remission status: in remission of unspecified degree Qualified Code(s): F31.70 - Bipolar disorder, currently in remission, most recent episode unspecified Code(s): F31.9 - Bipolar disorder, unspecified Status: Acute (11) Dementia: Qualifiers: Dementia type: unspecified type Dementia severity: moderate Dementia behavioral or psychological symptom: with mood disturbance Qualified Code(s): F03.B3 - Unspecified dementia, moderate, with mood disturbance Code(s): F03.90 - Unspecified dementia, unspecified severity, without behavioral disturban
[2022-07-06 08:48] LABS: Basophils Percent Auto 0.1 % (0.2-1.2); Hematocrit 31.9 % (37.0-47.0); Hemoglobin 9.5 g/dL (12.0-15.0); Immature Granulocyte Absolute 0.06 K/mm3 (0.00-0.031); Immature Granulocyte Percent A 0.8 % (0-0.5); Lymphocytes Absolute Auto 0.56 K/mm3 (0.9-3.2); Lymphocytes Percent Auto 7.3 % (18.3-44.2); Mean Corpuscular HGB Conc 29.8 g/dl (32-36); Mean Corpuscular Hemoglobin 30.8 pg (26-34); Mean Corpuscular Volume 103.6 fl (80-100); Mean Platelet Volume 10.8 fl (7.4-10.4); Monocytes Absolute Auto 0.2 K/mm3 (0.1-0.6); Neutrophils Absolute Auto 6.9 K/mm3 (1.3-6.7); Neutrophils Percent Auto 88.8 % (45.5-73.1); Nucleated Red Blood Cells Absolute Auto 0.1 K/mm3 (0.0-0.012); Nucleated Red Blood Cells Perc 0.8 % (0.0-0.2); Platelet Count Result 257 k/mm3 (150-375); Red Blood Count 3.08 M/mm3 (4.2-5.4); Red Cell Distribution Width 15.3 % (11.5-14.5); White Blood Count 7.7 K/mm3 (4.5-10.0)
[2022-07-06 08:58] LABS: Alanine Aminotransferase 19 U/L (6-35); Albumin Level 3.8 g/dL (3.5-5.1); Alkaline Phosphatase 78 U/L (38-126); Anion Gap 8 mmol/L (8-16); Aspartate Amino Transferase 27 U/L (14-36); Bilirubin,Total 0.6 mg/dL (0.2-1.3); Blood Urea Nitrogen 18 mg/dL (7-17); Calcium 8.8 mg/dL (8.4-10.2); Carbon Dioxide 39 mmol/L (22-30); Chloride 94 mmol/L (98-107); Estimated CRCL calculation 65 ml/min; Estimated Glomerular Filt Rate > 60; Glucose 145 mg/dL (65-110); Magnesium 2.1 mg/dL (1.6-2.3); Potassium 3.2 mmol/L (3.4-5.0); Sodium 141 mmol/L (137-145)
[2022-07-06 09:06] LABS: Hypochromasia 1+ (NORMAL); Macrocytosis 1+ (NORMAL); Platelet Estimate Adequate (Adequate); Schistocytes None Seen (NORMAL)
[2022-07-06 09:07] LABS: NT Pro B Type Natriuretic Pept 3340 pg/mL (19.9-100)
[2022-07-06] MEDS: lamoTRIgine 100 MG TABLET 200 MG PO ×2 (09:26→17:21)
[2022-07-06] MEDS: MELOXICAM 7.5 MG TABLET 15 MG PO (09:26)
[2022-07-06] MEDS: FUROSEMIDE INJ 40 MG/4 ML VIAL IV PUSH (09:26)
[2022-07-06] MEDS: EZETIMIBE 10 MG TABLET PO (09:26)
[2022-07-06] MEDS: MEMANTINE 5 MG TABLET PO (09:26)
[2022-07-06] MEDS: POTASSIUM CHLORIDE 10 MEQ TABLET.ER PO (09:26)
[2022-07-06] MEDS: carvediloL 25 MG TABLET PO ×2 (09:27→20:24)
[2022-07-06] MEDS: PRAVASTATIN SODIUM 20 MG TABLET PO (09:27)
[2022-07-06] MEDS: PANTOPRAZOLE 40 MG TABLET PO (09:27)
[2022-07-06] MEDS: QUEtiapine FUMARATE 12.5 MG TABLET PO ×2 (09:27→17:19)
[2022-07-06] MEDS: DULoxetine HCL 60 MG CAPSULE.DR PO (09:29)
[2022-07-06] MEDS: TAMSULOSIN HCL 0.4 MG CAPSULE PO ×2 (09:29→17:24)
--- NOTE | 2022-07-06 14:24 | PM.CNCAR ---
Assessment and Plan Assessment and plan (1) Chest pain: Code(s): R07.9 - Chest pain, unspecified Status: Acute Assessment and Plan: patient complained of chest pain yesterday during about of extreme agitation. A troponin level was drawn and was negative. EKG showed sinus rhythm with a right bundle branch block, no ST T-wave abnormalities to suggest ischemia. Currently, she is denying any chest pain and is resting comfortably in bed. No further cardiac workup or evaluation is necessary or indicated at this time. Cardiology will sign off. Please do not hesitate to contact us with any further questions. History of Present Illness History of Present Illness Consult date/time: 07/06/22 14:24 Requesting physician: Sneha Bassett MD Consult reason: chest pain Reason For Visit: Pneumonia/Hypercapnia Narrative: Ms. Castañeda is a 77-year-old female who was brought to the hospital from her assisted living facility for hypoxia. The patient's mental status is significantly altered therefore, I was unable to obtain much of a history from the patient. Most of this history was obtained through chart review and nursing report. Apparently yesterday during a period of extreme agitation, patient complained of left-sided chest pain. This is why we are being asked to see her. At the time of my interview, patient denies any chest pain currently and she denies having chest pain at any time. She is resting comfortably in bed but tells me that her left leg is sore. She does not have any other complaints. Review of Systems Review of Systems: ROS unobtainable: Yes unobtainable due to mental status PMFSH Past Medical History Medical History Anemia Atrial fibrillation/flutter Bipolar disorder CHF (congestive heart failure) Chronic GERD Chronic respiratory failure COPD (chronic obstructive pulmonary disease) Dementia Gastritis Hyperlipidemia Hypertension Obstructive sleep apnea treated with BiPAP Restless legs syndrome (RLS) Urge urinary incontinence Surgical History Surgical History History of back surgery Decompression of lumbar spinal stenosis 01/27/2022 Status post cataract extraction of both eyes with insertion of intraocular lens Status post open reduction with internal fixation of fracture (~1987) Left ankle fracture with subsequent removal of hardware 2008 Status post right knee replacement Family History Family History Mother CHF (congestive heart failure) Diabetes mellitus Hypertension Father Lung cancer Social History Social History Social History: she lives alone at a local [facility]. She has 2 children. she is retired from factory work. She wears oxygen at home 2 L per nasal cannula. She is wheelchair-bound code status full code Smoking status: Never smoker Alcohol intake: never Substance use: never Substance use type: does not use Lack of Transportation: No Lack of Food: Never True Current Housing: I Have Housing Concerned About Future Housing: No Difficulty Paying Gas/Electric Bills: No Difficulty Paying for Meds: No Currently Unemployed: No Education: Don't Know Difficulty w/ Childcare or Family Care: No Living arrangements: residential Gender identity (if verbalized by the patient): Female Spiritual care concerns: No Meds Home Medications and Allergies Home Medications Medication Instructions Recorded Confirmed Type apixaban 5 mg tablet (Eliquis) 5 mg PO BID 10/22/21 07/03/22 History duloxetine 60 mg capsule,delayed 60 mg PO DAILY 10/22/21 07/03/22 History release sprinkle ezetimibe 10 mg tablet 10 mg PO DAILY 10/22/21 07/03/22 History lamotrigine 200 mg tablet 200 mg PO BID 10/22/21 07/03/22 History m
--- NOTE | 2022-07-06 15:17 | PM.IMPN ---
Progress Note: A&P Assessment and Plan (1) Anticoagulated by anticoagulation treatment: Code(s): Z79.01 - buttermaker continuous churn (current) use of anticoagulants Status: Acute (2) Chronic respiratory failure: Code(s): J96.10 - Chronic respiratory failure, unspecified whether with hypoxia or hypercapnia Status: Acute (3) COPD (chronic obstructive pulmonary disease): Code(s): J44.9 - Chronic obstructive pulmonary disease, unspecified Status: Acute (4) Abnormal findings on diagnostic imaging of gallbladder: Code(s): R93.2 - Abnormal findings on diagnostic imaging of liver and biliary tract Status: Acute (5) Chest pain: Code(s): R07.9 - Chest pain, unspecified Status: Acute (6) Acute respiratory failure with hypoxia and hypercarbia: Code(s): J96.01 - Acute respiratory failure with hypoxia; J96.02 - Acute respiratory failure with hypercapnia Status: Acute (7) Altered mental status: Code(s): R41.82 - Altered mental status, unspecified Status: Acute Plan 77 years old F with PMH of demetia, Chronic Resp Failure on home O2 presented with Altered mental status. 1)Altered Mental Status/Acute Encephalopathy: ?h/o dementia UTI ruled out c/w namenda C/w Seroquel Frequent R orientation 2)Acute on Chronic Resp Erwin;ure: C/w O2 support C/w Azithromycin+Ceftriaxone for possible PNA c/w Solumderol 3)Chest pain: resolved Cardiology signed off 4)Abnormal GB on CT Chest: Await USG abdomen Appreciate Surgery help 5)Afibb:C/w Cardizem, Eliquis Supplement potassium 6)DVT ppx:On Eliquis 7)Code:Full 8)Dispo:pending improvement Time Spent With Patient Time with patient: 25 - 35 minutes Subjective Date/time seen: 07/06/22 15:17 Interval history: confused Review of Systems Review of Systems: ROS unobtainable: Yes unobtainable due to mental status Exam Narrative: ?GENERAL:? no acute distress. Well-nourished. - EYES: EOMI. Anicteric. - HENT: Moist mucous membranes. - LUNGS:? Coarse breath sound bilaterally, scattered wheezing, tachypnea - CARDIOVASCULAR: Regular rate and rhythm. No murmur. No JVD. - ABDOMEN: Soft, non-tender and non-distended. No palpable masses. - EXTREMITIES: No edema. Peripheral pulses 2+. Non-tender. - NEUROLOGIC: No focal neurological deficits. CN II-XII grossly intact. - PSYCHIATRIC: Awake, Alert and not oriented x 3. . - SKIN: No rashes or lesions. Warm. - LYMPH: No cervical lymphadenopathy. Objective Data Vital Signs Vital Signs: Vital Signs - 24 hr 07/05/22 16:00 07/05/22 16:00 07/05/22 16:00 Temperature 98.0 F Pulse Rate 80 83 Respiratory Rate 28 H 22 H Blood Pressure 170/67 H Pulse Oximetry 95 95 Oxygen Delivery BiPAP Oxygen Flow Rate Fraction of Inspired Oxygen 07/05/22 16:00 07/05/22 18:00 07/05/22 18:00 Temperature Pulse Rate 71 Respiratory Rate 20 Blood Pressure Pulse Oximetry 95 97 Oxygen Delivery BiPAP BiPAP Oxygen Flow Rate Fraction of Inspired Oxygen 40 07/05/22 20:10 07/05/22 20:26 07/05/22 20:26 Temperature Pulse Rate 73 74 73 Respiratory Rate 21 H 20 21 H Blood Pressure Pulse Oximetry 98 Oxygen Delivery BiPAP Oxygen Flow Rate Fraction of Inspired Oxygen 07/05/22 20:00 07/05/22 21:02 07/05/22 20:00 Temperature 97.6 F Pulse Rate 70 78 71 Respiratory Rate 24 H Blood Pressure 144/57 H Pulse Oximetry 100 Oxygen Delivery Oxygen Flow Rate Fraction of Inspired Oxygen 07/05/22 20:00 07/05/22 22:00 07/05/22 23:02 Temperature 97.4 F L Pulse Rate 76 79 Respiratory Rate 28 H Blood Pressure 141/75 H Pulse Oximetry 100 98 Oxygen Delivery BiPAP Oxygen Flow Rate Fraction of Inspired Oxygen 40 07/05/22 23:48 07/06/22 00:00 07/05/22 23:30 Temperature Pulse Rate 78 70 Respiratory Rate 20 Blood Pressure Pulse Oximetry 99 97 Oxygen Delivery BiPAP BiPAP Oxygen Flow Rate Fr
[2022-07-06] MEDS: POTASSIUM CHLORIDE 20 MEQ TABLET.ER 40 MEQ PO (17:16)
[2022-07-06] MEDS: APIXABAN 5 MG TABLET PO (17:21)
[2022-07-06] MEDS: methylPREDNISolone SOD SUCC 40 MG VIAL IV PUSH (17:23)
[2022-07-06] MEDS: rOPINIRole HCL 1 MG TABLET 3 MG PO (20:24)
[2022-07-06] MEDS: GABAPENTIN 100 MG CAPSULE 200 MG PO (20:24)
[2022-07-07] VITALS (29 sets, daily range): BP systolic 114–151; BP diastolic 40–81; PULSE 56–84; RESP 16–23; TEMP 36.2–36.7; O2SAT 90–100
[2022-07-07] MEDS: IPRATROPIUM BR 0.02% INH SOLN 0.5 MG/2.5 ML VIAL INHALATION ×4 (02:16→21:02)
[2022-07-07] MEDS: ALBUTEROL SULFATE NEB 2.5 MG/3 ML INH INHALATION ×4 (02:17→21:01)
[2022-07-07 04:52] LABS: Basophils Percent Auto 0.1 % (0.2-1.2); Hematocrit 28.2 % (37.0-47.0); Hemoglobin 8.3 g/dL (12.0-15.0); Immature Granulocyte Absolute 0.06 K/mm3 (0.00-0.031); Immature Granulocyte Percent A 0.6 % (0-0.5); Lymphocytes Absolute Auto 0.57 K/mm3 (0.9-3.2); Lymphocytes Percent Auto 5.8 % (18.3-44.2); Mean Corpuscular HGB Conc 29.4 g/dl (32-36); Mean Corpuscular Volume 101.8 fl (80-100); Mean Platelet Volume 10.8 fl (7.4-10.4); Monocytes Absolute Auto 0.4 K/mm3 (0.1-0.6); Neutrophils Absolute Auto 8.7 K/mm3 (1.3-6.7); Neutrophils Percent Auto 89.5 % (45.5-73.1); Nucleated Red Blood Cells Perc 0.3 % (0.0-0.2); Platelet Count Result 273 k/mm3 (150-375); Red Blood Count 2.77 M/mm3 (4.2-5.4); Red Cell Distribution Width 15.1 % (11.5-14.5); White Blood Count 9.8 K/mm3 (4.5-10.0)
[2022-07-07 05:03] LABS: Blood Urea Nitrogen 30 mg/dL (7-17); Calcium 8.9 mg/dL (8.4-10.2); Carbon Dioxide > 40 mmol/L (22-30); Chloride 91 mmol/L (98-107); Estimated CRCL calculation 41 ml/min; Estimated Glomerular Filt Rate 54; Glucose 158 mg/dL (65-110); Potassium 3.6 mmol/L (3.4-5.0); Sodium 137 mmol/L (137-145)
[2022-07-07] MEDS: QUEtiapine FUMARATE 12.5 MG TABLET PO ×2 (09:45→18:24)
[2022-07-07] MEDS: TAMSULOSIN HCL 0.4 MG CAPSULE PO ×2 (09:45→18:24)
[2022-07-07] MEDS: PRAVASTATIN SODIUM 20 MG TABLET PO (09:45)
[2022-07-07] MEDS: lamoTRIgine 100 MG TABLET 200 MG PO ×2 (09:46→18:25)
[2022-07-07] MEDS: PANTOPRAZOLE 40 MG TABLET PO (09:46)
[2022-07-07] MEDS: POTASSIUM CHLORIDE 10 MEQ TABLET.ER PO (09:46)
[2022-07-07] MEDS: MEMANTINE 5 MG TABLET PO (09:46)
[2022-07-07] MEDS: carvediloL 25 MG TABLET PO ×2 (09:47→20:02)
[2022-07-07] MEDS: AZITHROMYCIN 250 MG TABLET 500 MG PO (09:47)
[2022-07-07] MEDS: EZETIMIBE 10 MG TABLET PO (09:47)
[2022-07-07] MEDS: APIXABAN 5 MG TABLET PO ×2 (09:47→18:25)
[2022-07-07] MEDS: POTASSIUM CHLORIDE 20 MEQ TABLET.ER 40 MEQ PO (09:48)
[2022-07-07] MEDS: DULoxetine HCL 60 MG CAPSULE.DR PO (09:48)
[2022-07-07] MEDS: predniSONE 10 MG TABLET 40 MG PO (10:46)
--- NOTE | 2022-07-07 13:36 | PM.PNGS ---
Progress Note: A&P Assessment and Plan (1) Abnormal findings on diagnostic imaging of gallbladder: Code(s): R93.2 - Abnormal findings on diagnostic imaging of liver and biliary tract Status: Acute Assessment and Plan: US showed some wall thickening and pericholecystic fluid, but no cholelithiasis or Elizabeth's sign. She is completely asymptomatic and her abdominal exam is benign. HIDA scan was ordered by the Hospitalist. Regardless of the HIDA scan results, we would not recommend surgery as she is completely asymptomatic and her and her daughter have verbalized that they would not want surgery. (2) Chest pain: Code(s): R07.9 - Chest pain, unspecified Status: Acute Assessment and Plan: Resolved. Small episode of chest pain during a time of agitation. Does not seem to be related to her gallbladder. Plan I have discussed the patient's case and plan of care with Dr. Layne. Subjective Subjective Date/Time Seen: 07/07/22 09:36 Patient reports: no new complaints and afebrile Interval history: Patient seen this morning and is alert and more oriented. She denies having any abdominal or chest pain. No N/V and tolerating her diet well. Review of Systems Review of Systems: ROS unchanged Exam Const: General: comfortable and no acute distress GI: Inspection: non-distended GI Palp: Yes Soft to palpation, No Tenderness to palpation present (GI), No Guarding due to palpation present (GI) and No Rebound tenderness present Auscultation: normal bowel sounds Objective Data Vital Signs Vital Signs: Vital Signs - 24 hr 07/06/22 15:00 07/06/22 14:45 07/06/22 16:00 Temperature 97.1 F L Pulse Rate 68 76 71 Respiratory Rate 18 20 Blood Pressure 132/54 L Pulse Oximetry 96 Oxygen Delivery Oxygen Flow Rate 07/06/22 16:00 07/06/22 16:00 07/06/22 18:00 Temperature Pulse Rate 79 80 Respiratory Rate Blood Pressure Pulse Oximetry 93 Oxygen Delivery Nasal Cannula Oxygen Flow Rate 2 07/06/22 20:00 07/06/22 20:24 07/06/22 20:34 Temperature 97.8 F Pulse Rate 85 78 87 Respiratory Rate 20 18 Blood Pressure 116/45 L Pulse Oximetry 91 Oxygen Delivery Oxygen Flow Rate 07/06/22 20:35 07/06/22 20:47 07/06/22 20:00 Temperature Pulse Rate 87 89 82 Respiratory Rate 18 18 Blood Pressure Pulse Oximetry 97 Oxygen Delivery Nasal Cannula Oxygen Flow Rate 2 07/06/22 20:00 07/06/22 22:00 07/06/22 23:00 Temperature 97.8 F Pulse Rate 71 75 Respiratory Rate 20 Blood Pressure 138/57 L Pulse Oximetry 90 96 Oxygen Delivery Nasal Cannula Oxygen Flow Rate 2 07/06/22 23:01 07/07/22 00:00 07/07/22 00:00 Temperature Pulse Rate 75 69 Respiratory Rate 20 Blood Pressure Pulse Oximetry 97 96 Oxygen Delivery BiPAP Nasal Cannula Oxygen Flow Rate 2 07/07/22 02:13 07/07/22 02:17 07/07/22 02:27 Temperature Pulse Rate 82 84 Respiratory Rate 23 H 23 H 22 H Blood Pressure Pulse Oximetry 98 Oxygen Delivery BiPAP Oxygen Flow Rate 07/07/22 04:00 07/07/22 02:00 07/07/22 04:00 Temperature 97.8 F Pulse Rate 70 65 67 Respiratory Rate 20 Blood Pressure 135/81 Pulse Oximetry 97 Oxygen Delivery Oxygen Flow Rate 07/07/22 04:00 07/07/22 06:00 07/07/22 07:05 Temperature Pulse Rate 63 62 Respiratory Rate 18 Blood Pressure Pulse Oximetry 96 90 Oxygen Delivery Nasal Cannula Nasal Cannula Oxygen Flow Rate 2 2 07/07/22 07:05 07/07/22 07:15 07/07/22 08:13 Temperature 97.7 F Pulse Rate 62 66 72 Respiratory Rate 18 18 20 Blood Pressure 151/79 H Pulse Oximetry 97 Oxygen Delivery Oxygen Flow Rate 07/07/22 09:47 07/07/22 10:51 07/07/22 08:00 Temperature Pulse Rate 67 67 Respiratory Rate Blood Pressure Pulse Oximetry Oxygen Delivery Nasal Cannula Oxygen Flow Rate 2 07/07/22 08:00 07/07/22 10:00 07/07/22 12:00 Temperature
--- NOTE | 2022-07-07 14:01 | PM.IMPN ---
Progress Note: A&P Assessment and Plan (1) Anticoagulated by anticoagulation treatment: Code(s): Z79.01 - bed bug exterminator (current) use of anticoagulants Status: Acute (2) Chronic respiratory failure: Code(s): J96.10 - Chronic respiratory failure, unspecified whether with hypoxia or hypercapnia Status: Acute (3) COPD (chronic obstructive pulmonary disease): Code(s): J44.9 - Chronic obstructive pulmonary disease, unspecified Status: Acute (4) Abnormal findings on diagnostic imaging of gallbladder: Code(s): R93.2 - Abnormal findings on diagnostic imaging of liver and biliary tract Status: Acute (5) Chest pain: Code(s): R07.9 - Chest pain, unspecified Status: Acute (6) Acute respiratory failure with hypoxia and hypercarbia: Code(s): J96.01 - Acute respiratory failure with hypoxia; J96.02 - Acute respiratory failure with hypercapnia Status: Acute (7) Altered mental status: Code(s): R41.82 - Altered mental status, unspecified Status: Acute Plan 77 years old F with PMH of demetia, Chronic Resp Failure on home O2 presented with Altered mental status. 1)Altered Mental Status/Acute Encephalopathy: ?h/o dementia UTI ruled out c/w namenda C/w Seroquel Frequent orientation 2)Acute on Chronic Resp Failure: C/w O2 support s/p Azithromycin Will finish 5 days of ceftriaxone in AM Switch toPrednisone taper 3)Chest pain: resolved Cardiology signed off 4)Abnormal GB on CT Chest: Appreciate Surgery help US showed some wall thickening and pericholecystic fluid, but no cholelithiasis or Elizabeth's sign. She is completely asymptomatic and her abdominal exam is benign. No plans for any surgical intervention 5)Afibb:C/w Cardizeitz, Eliquis 6)DVT ppx:On Eliquis 7)Code:Full 8)Dispo:Anticipate discharge tomorrow Time Spent With Patient Time with patient: 15 - 25 minutes Subjective Date/time seen: 07/07/22 14:01 Interval history: no acute events overnight Review of Systems Review of Systems: All systems reviewed & are unremarkable except as noted in HPI and below Exam Narrative: ?GENERAL:? no acute distress. Well-nourished. - EYES: EOMI. Anicteric. - HENT: Moist mucous membranes. - LUNGS:? Coarse breath sound bilaterally, scattered wheezing, tachypnea - CARDIOVASCULAR: Regular rate and rhythm. No murmur. No JVD. - ABDOMEN: Soft, non-tender and non-distended. No palpable masses. - EXTREMITIES: No edema. Peripheral pulses 2+. Non-tender. - NEUROLOGIC: No focal neurological deficits. CN II-XII grossly intact. - PSYCHIATRIC: Awake, Alert and not oriented x 3. . - SKIN: No rashes or lesions. Warm. - LYMPH: No cervical lymphadenopathy. Objective Data Vital Signs Vital Signs: Vital Signs - 24 hr 07/06/22 15:00 07/06/22 14:45 07/06/22 16:00 Temperature 97.1 F L Pulse Rate 68 76 71 Respiratory Rate 18 20 Blood Pressure 132/54 L Pulse Oximetry 96 Oxygen Delivery Oxygen Flow Rate 07/06/22 16:00 07/06/22 16:00 07/06/22 18:00 Temperature Pulse Rate 79 80 Respiratory Rate Blood Pressure Pulse Oximetry 93 Oxygen Delivery Nasal Cannula Oxygen Flow Rate 2 07/06/22 20:00 07/06/22 20:24 07/06/22 20:34 Temperature 97.8 F Pulse Rate 85 78 87 Respiratory Rate 20 18 Blood Pressure 116/45 L Pulse Oximetry 91 Oxygen Delivery Oxygen Flow Rate 07/06/22 20:35 07/06/22 20:47 07/06/22 20:00 Temperature Pulse Rate 87 89 82 Respiratory Rate 18 18 Blood Pressure Pulse Oximetry 97 Oxygen Delivery Nasal Cannula Oxygen Flow Rate 2 07/06/22 20:00 07/06/22 22:00 07/06/22 23:00 Temperature 97.8 F Pulse Rate 71 75 Respiratory Rate 20 Blood Pressure 138/57 L Pulse Oximetry 90 96 Oxygen Delivery Nasal Cannula Oxygen Flow Rate 2 07/06/22 23:01 07/07/22 00:00 07/07/22 00:00 Temperature Pulse Rate 75 69 Respiratory Rate 20 Blood Pressure Pulse Oxime
[2022-07-07] MEDS: rOPINIRole HCL 1 MG TABLET 3 MG PO (20:02)
[2022-07-07] MEDS: GABAPENTIN 100 MG CAPSULE 200 MG PO (20:02)
[2022-07-08] VITALS (18 sets, daily range): BP systolic 124–144; BP diastolic 67–78; PULSE 56–100; RESP 18–22; TEMP 35.6–36.6; O2SAT 95–98
[2022-07-08] MEDS: ALBUTEROL SULFATE NEB 2.5 MG/3 ML INH INHALATION ×2 (02:09→09:18)
[2022-07-08] MEDS: IPRATROPIUM BR 0.02% INH SOLN 0.5 MG/2.5 ML VIAL INHALATION ×2 (02:10→09:18)
[2022-07-08 05:31] LABS: Basophils Percent Auto 0.1 % (0.2-1.2); Hematocrit 27.9 % (37.0-47.0); Hemoglobin 8.2 g/dL (12.0-15.0); Immature Granulocyte Absolute 0.15 K/mm3 (0.00-0.031); Immature Granulocyte Percent A 1.8 % (0-0.5); Lymphocytes Absolute Auto 0.68 K/mm3 (0.9-3.2); Mean Corpuscular HGB Conc 29.4 g/dl (32-36); Mean Corpuscular Hemoglobin 29.9 pg (26-34); Mean Corpuscular Volume 101.8 fl (80-100); Monocytes Absolute Auto 0.7 K/mm3 (0.1-0.6); Monocytes Percent Auto 8.3 % (2.6-8.5); Neutrophils Absolute Auto 6.9 K/mm3 (1.3-6.7); Neutrophils Percent Auto 81.8 % (45.5-73.1); Nucleated Red Blood Cells Perc 0.5 % (0.0-0.2); Platelet Count Result 262 k/mm3 (150-375); Red Blood Count 2.74 M/mm3 (4.2-5.4); Red Cell Distribution Width 15.2 % (11.5-14.5); White Blood Count 8.5 K/mm3 (4.5-10.0)
[2022-07-08 05:54] LABS: Blood Urea Nitrogen 30 mg/dL (7-17); Calcium 8.5 mg/dL (8.4-10.2); Carbon Dioxide > 40 mmol/L (22-30); Chloride 94 mmol/L (98-107); Estimated CRCL calculation 45 ml/min; Estimated Glomerular Filt Rate > 60; Glucose 133 mg/dL (65-110); Sodium 139 mmol/L (137-145)
[2022-07-08 07:23] LABS: Anisocytosis 1+ (NORMAL); Platelet Estimate Adequate (Adequate)
[2022-07-08 07:24] LABS: Schistocytes None Seen (NORMAL)
--- NOTE | 2022-07-08 10:00 | PM.PNGS ---
Progress Note: A&P Assessment and Plan (1) Abnormal findings on diagnostic imaging of gallbladder: Code(s): R93.2 - Abnormal findings on diagnostic imaging of liver and biliary tract Status: Acute Assessment and Plan: Patient continues to be completely asymptomatic. She is tolerating a heart healthy diet. Her abdominal exam is benign. US showed some wall thickening and pericholecystic fluid, but no cholelithiasis or Elizabeth's sign. Would not recommend any surgical intervention at this time since the patient is asymptomatic and has stated she would not want surgery. I educated the patient on symptoms of gallbladder disease in case of any future problems. She has asked that I call her daughter again today to discuss our recommendations, and I have reached out and left a message with her this morning. Plan I have discussed the patient's case and plan of care with Dr. Layne. Subjective Subjective Date/Time Seen: 07/08/22 08:45 Patient reports: no new complaints, tolerating a regular diet, flatus and afebrile Interval history: Patient sitting in chair eating breakfast this morning. She has finished nearly her entire meal. She denies any episodes of chest pain or abdominal pain. No N/V. She is tolerating her diet well. No acute changes overnight. She requested that I call and talk to her daughter to update her on her care and discuss our recommendations with her. I then called the daughter and left a message for her to call me back. Review of Systems Review of Systems: ROS unchanged Exam Const: General: comfortable and no acute distress Orientation/consciousness: patient oriented x3 GI: Inspection: non-distended GI Palp: Yes Soft to palpation, No Tenderness to palpation present (GI), No Guarding due to palpation present (GI) and No Rebound tenderness present Auscultation: normal bowel sounds Objective Data Vital Signs Vital Signs: Vital Signs - 24 hr 07/07/22 10:51 07/07/22 12:00 07/07/22 12:06 Temperature 98.1 F Pulse Rate 66 Respiratory Rate 20 Blood Pressure 134/61 Pulse Oximetry 98 98 Oxygen Delivery Nasal Cannula Nasal Cannula Oxygen Flow Rate 2 2 07/07/22 13:05 07/07/22 13:15 07/07/22 15:00 Temperature Pulse Rate 58 L 61 Respiratory Rate 18 18 Blood Pressure Pulse Oximetry Oxygen Delivery Nasal Cannula Oxygen Flow Rate 2 07/07/22 12:00 07/07/22 14:00 07/07/22 16:00 Temperature Pulse Rate 62 57 L Respiratory Rate Blood Pressure Pulse Oximetry 98 Oxygen Delivery Nasal Cannula Oxygen Flow Rate 2 07/07/22 16:00 07/07/22 15:44 07/07/22 18:00 Temperature 97.1 F L Pulse Rate 56 L 56 L 59 L Respiratory Rate 20 Blood Pressure 114/50 L Pulse Oximetry 95 Oxygen Delivery Oxygen Flow Rate 07/07/22 20:02 07/07/22 20:00 07/07/22 20:00 Temperature 97.9 F Pulse Rate 59 L 58 L Respiratory Rate 20 Blood Pressure 119/40 L Pulse Oximetry 99 98 Oxygen Delivery Nasal Cannula Oxygen Flow Rate 2 07/07/22 21:05 07/07/22 21:07 07/07/22 21:20 Temperature Pulse Rate 63 64 Respiratory Rate 16 16 Blood Pressure Pulse Oximetry 95 Oxygen Delivery Nasal Cannula Oxygen Flow Rate 2 07/07/22 23:18 07/07/22 23:35 07/07/22 20:00 Temperature 97.8 F Pulse Rate 72 60 58 L Respiratory Rate 21 H 20 Blood Pressure 138/79 Pulse Oximetry 100 99 Oxygen Delivery BiPAP Oxygen Flow Rate 07/07/22 22:00 07/08/22 00:00 07/08/22 02:11 Temperature Pulse Rate 68 58 L Respiratory Rate 20 Blood Pressure Pulse Oximetry 98 Oxygen Delivery Nasal Cannula Oxygen Flow Rate 2 07/08/22 02:12 07/08/22 00:00 07/08/22 02:00 Temperature Pulse Rate 56 L 61 57 L Respiratory Rate 21 H Blood Pressure Pulse Oximetry 98 Oxygen Delivery BiPAP Oxygen Flow Rate 07/08/22 04:00 07/08/22 04:00 07/08/22 04:00 Temperature 97.8 F Pulse Rate 60 58 L Respiratory Rate 18
--- NOTE | 2022-07-08 10:01 | PM.DS ---
DS: Admitting Diagnosis Discharge Date 07/08/22 Admitting Diagnosis Altered mental status DS: Discharge Diagnosis Discharge Diagnosis (1) Anticoagulated by anticoagulation treatment: Code(s): Z79.01 - superintendent terminal (current) use of anticoagulants Status: Acute (2) Chronic respiratory failure: Code(s): J96.10 - Chronic respiratory failure, unspecified whether with hypoxia or hypercapnia Status: Acute (3) COPD (chronic obstructive pulmonary disease): Code(s): J44.9 - Chronic obstructive pulmonary disease, unspecified Status: Acute (4) Abnormal findings on diagnostic imaging of gallbladder: Code(s): R93.2 - Abnormal findings on diagnostic imaging of liver and biliary tract Status: Acute (5) Chest pain: Code(s): R07.9 - Chest pain, unspecified Status: Acute (6) Acute respiratory failure with hypoxia and hypercarbia: Code(s): J96.01 - Acute respiratory failure with hypoxia; J96.02 - Acute respiratory failure with hypercapnia Status: Acute (7) Altered mental status: Code(s): R41.82 - Altered mental status, unspecified Status: Acute Plan 77 years old F with PMH of demetia, Chronic Resp Failure on home O2 presented with Altered mental status. 1)Altered Mental Status/Acute Encephalopathy: ?h/o dementia UTI ruled out c/w namenda C/w Seroquel Frequent orientation 2)Acute on Chronic Resp Failure: C/w O2 support s/p Azithromycin Will finish 5 days of ceftriaxone in AM Switch toPrednisone taper 3)Chest pain: resolved Cardiology signed off 4)Abnormal GB on CT Chest: Appreciate Surgery help US showed some wall thickening and pericholecystic fluid, but no cholelithiasis or Elizabeth's sign. She is completely asymptomatic and her abdominal exam is benign. No plans for any surgical intervention 5)Afibb:C/w Malaika, Eliquis 6)DVT ppx:On Eliquis 7)Code:Full 8)Dispo:Anticipate discharge tomorrow DS: Summary Hospital Course Hospital Course: 77-year-old female with past medical history of dementia presenting with altered mental status. She was also noted to have respiratory failure and thought to have pneumonia. She completed a course of azithromycin and Rocephin as well as prednisone. She did have some abdominal pain concerning for cholecystitis but this was ruled. All symptoms resolved. See above for details. Time Spent with Patient Time attestation: Total time spent providing and/or coordinating discharge services: Exam Narrative: ?GENERAL:? no acute distress. Well-nourished. - EYES: EOMI. Anicteric. - HENT: Moist mucous membranes. - LUNGS:? Coarse breath sound bilaterally, scattered wheezing, tachypnea - CARDIOVASCULAR: Regular rate and rhythm. No murmur. No JVD. - ABDOMEN: Soft, non-tender and non-distended. No palpable masses. - EXTREMITIES: No edema. Peripheral pulses 2+. Non-tender. - NEUROLOGIC: No focal neurological deficits. CN II-XII grossly intact. - PSYCHIATRIC: Awake, Alert and not oriented x 3. . - SKIN: No rashes or lesions. Warm. - LYMPH: No cervical lymphadenopathy. DS: Data Data Completed and Pending Labs on day of discharge: Labs from last 24 hours 07/08/22 07/08/22 04:41 04:41 WBC 8.5 RBC 2.74 L Hgb 8.2 L Hct 27.9 L MCV 101.8 H MCH 29.9 MCHC 29.4 L RDW 15.2 H Plt Count 262 MPV 11.0 H Immature Gran % (Auto) 1.8 H Neut % (Auto) 81.8 H Lymph % (Auto) 8.0 L [place] % (Auto) 8.3 Eos % (Auto) 0.0 Baso % (Auto) 0.1 L Lymph # (Auto) 0.68 L [place] # (Auto) 0.7 H Eos # (Auto) 0.0 Baso # (Auto) 0.0 Abs Immat Gran (auto) 0.15 H Absolute Neuts (auto) 6.9 H Absolute Nucleated RBC 0.0 Nucleated RBC % 0.5 H Platelet Estimate Adequate Anisocytosis 1+ Schistocytes None seen Sodium 139 Potassium 4.0 Chloride 94 L Carbon Dioxide > 40 H Anion Gap BUN 30 H Creatinine 0.90 Estim Creat Clear Calc 45 Estimated GFR > 60 Glucose 133 H
[2022-07-08] MEDS: TAMSULOSIN HCL 0.4 MG CAPSULE PO ×2 (10:32→17:40)
[2022-07-08] MEDS: PRAVASTATIN SODIUM 20 MG TABLET PO (10:33)
[2022-07-08] MEDS: DULoxetine HCL 60 MG CAPSULE.DR PO (10:33)
[2022-07-08] MEDS: QUEtiapine FUMARATE 12.5 MG TABLET PO ×2 (10:33→17:40)
[2022-07-08] MEDS: MEMANTINE 5 MG TABLET PO (10:33)
[2022-07-08] MEDS: PANTOPRAZOLE 40 MG TABLET PO (10:33)
[2022-07-08] MEDS: carvediloL 25 MG TABLET PO (10:34)
[2022-07-08] MEDS: lamoTRIgine 100 MG TABLET 200 MG PO ×2 (10:34→17:40)
[2022-07-08] MEDS: APIXABAN 5 MG TABLET PO ×2 (10:34→17:40)
[2022-07-08] MEDS: POTASSIUM CHLORIDE 10 MEQ TABLET.ER PO (10:34)
[2022-07-08] MEDS: EZETIMIBE 10 MG TABLET PO (10:34)
[2022-07-08] MEDS: predniSONE 10 MG TABLET 40 MG PO (10:36)
== END 2022-07-08 18:00 | DRG 189 ==
LOC: ANHED 12:48 → ANHIMU 14:58
PROVIDERS: Internal Medicine; Nurse Practitioner; Admitting Provider Hospitalist; Emergency Provider Emergency Medicine; Visit Provider Student in an Organized Health Care Education/Training Program
DX: J96.21 Acute and chronic respiratory failure with hypoxia (principal); J18.9 Pneumonia, unspecified organism; I50.33 Acute on chronic diastolic (congestive) heart failure; I48.92 Unspecified atrial flutter; J96.22 Acute and chronic respiratory failure with hypercapnia; I11.0 Hypertensive heart disease with heart failure; D64.9 Anemia, unspecified; E78.5 Hyperlipidemia, unspecified; F31.70 Bipolar disorder, currently in remission, most recent episode unspecified; F31.9 Bipolar disorder, unspecified; F03.90 Unspecified dementia, unspecified severity, without behavioral disturbance, psychotic disturbance, mood disturbance, and anxiety; G47.33 Obstructive sleep apnea (adult) (pediatric); G25.81 Restless legs syndrome; I48.91 Unspecified atrial fibrillation; J44.9 Chronic obstructive pulmonary disease, unspecified; K21.9 Gastro-esophageal reflux disease without esophagitis; R07.9 Chest pain, unspecified; R93.2 Abnormal findings on diagnostic imaging of liver and biliary tract; R82.90 Unspecified abnormal findings in urine; Z20.822 Contact with and (suspected) exposure to COVID-19; Z98.41 Cataract extraction status, right eye; Z98.42 Cataract extraction status, left eye; Z79.01 Long term (current) use of anticoagulants; Z96.1 Presence of intraocular lens; Z96.651 Presence of right artificial knee joint; Z99.89 Dependence on other enabling machines and devices; Z99.81 Dependence on supplemental oxygen
CPT/HCPCS: 36415; 36600; 51701; 70450; 71045; 71275; 76705; 80048; 80053; 81001; 82375; 82607; 82746; 82805; 83050; 83605; 83735; 83880; 84439; 84443; 84480; 84484; 85025; 85027; 87040; 87086; 87637; 93005; 93306; 93970; 94002; 94003; 94640; 94660; 96361; 97161; 97165; 97530; 97535; 99285; A9270; J0456; J0696; J1630; J1940; J2060; J2920; J2930; J7030; J7512; Q9967